=== PATIENT | female | born 1945 | race Caucasian/White ===

== ENCOUNTER 2018-04-20 10:54 | Day surgery (SDC) | payer MEDICARE, BC ==
[2018-04-20] MEDS: Lactated Ringers 1,000 ML IV SCH (11:31)
[2018-04-20] MEDS ORDERED: Propofol 200 MG/20 ML SDV ONE ×2 (12:16→13:04)
[2018-04-20] MEDS ORDERED: fentaNYL 100 MCG/2 ML SDV ONE (12:16)
[2018-04-20] MEDS ORDERED: Ondansetron 4 MG/2 ML SDV ONE (12:25)
--- NOTE | 2018-04-20 14:49 | OR ---
PREOPERATIVE DIAGNOSIS: Change in bowel habits. POSTOPERATIVE DIAGNOSIS: Change in bowel habits. PROCEDURE PERFORMED: Colonoscopy. INDICATION: The patient is a 72-year-old female with history of change in bowel habits, presents for colonoscopy at this time. PROCEDURE IN DETAIL: This was done in the operating room. Sedation was given per Anesthesia. She was placed in left lateral position. First, a rectal exam was done and was normal. Scope was introduced into the rectum and slowly advanced to the rectum, sigmoid, descending, transverse, and ascending colon until the cecum was reached. Upon reaching the cecum, scope was slowly withdrawn looking at all mucosal surfaces on the way out. No mucosal abnormalities, lesions, or polyps were noted. FINAL DIAGNOSIS: Normal colonoscopy. BKD: 04/20/2018 13:20:53 MODL: 04/20/2018 14:42:30 /[id number]
== END 2018-04-20 15:05 | disposition home or self-care (01) ==
LOC: VM.SDS 10:54
PROVIDERS: ATTEND Surgery
DX: R19.4 Change in bowel habit (principal); E03.9 Hypothyroidism, unspecified; K21.9 Gastro-esophageal reflux disease without esophagitis; Z79.899 Other long term (current) drug therapy
CPT/HCPCS: 00811; J2405; J2704; J3010; J7120

== ENCOUNTER 2018-05-18 10:56 | Day surgery (SDC) | payer MEDICARE, BC ==
[2018-05-18] MEDS: Lactated Ringers 1,000 ML IV SCH (11:39)
[2018-05-18] MEDS ORDERED: Propofol 200 MG/20 ML SDV ONE (12:21)
[2018-05-18] MEDS ORDERED: Ondansetron 4 MG/2 ML SDV ONE (12:21)
--- NOTE | 2018-05-18 12:59 | OR ---
PREOPERATIVE DIAGNOSIS: Abdominal pain. POSTOPERATIVE DIAGNOSIS: Abdominal pain. PROCEDURE PERFORMED: Esophagogastroduodenoscopy with antral biopsy. INDICATION: The patient is a 72-year-old with history of abdominal pain, presents for EGD for further evaluation. PROCEDURE IN DETAIL: This was done in the operating room. Sedation was given per Anesthesia. The endoscope was inserted into the pharynx across the esophagus into the stomach, across the pylorus into the first and second portion of the duodenum. First and second portion of the duodenum were normal. The scope was slowly withdrawn. The antrum did have some fairly significant antral gastritis. Two biopsies were taken for pathology and for H. pylori. Next, scope was retroflexed. No evidence of hiatal hernia. The scope was slowly withdrawn. The esophagus was normal. FINAL DIAGNOSIS: Antral gastritis. Biopsies pending. BKD: 05/18/2018 12:36:54 MODL: 05/18/2018 12:51:50 /[id number]
[2018-05-18 13:11] VITALS: BP 91/58
== END 2018-05-18 13:30 | disposition home or self-care (01) ==
LOC: VM.SDS 10:56
PROVIDERS: ATTEND Surgery
DX: K31.9 Disease of stomach and duodenum, unspecified (principal); K21.9 Gastro-esophageal reflux disease without esophagitis; E03.9 Hypothyroidism, unspecified; K29.70 Gastritis, unspecified, without bleeding; G89.29 Other chronic pain; M53.3 Sacrococcygeal disorders, not elsewhere classified; H81.09 Meniere's disease, unspecified ear; Z88.6 Allergy status to analgesic agent; Z88.5 Allergy status to narcotic agent; Z88.8 Allergy status to other drugs, medicaments and biological substances; Z79.52 Long term (current) use of systemic steroids; Z79.899 Other long term (current) drug therapy; Z79.2 Long term (current) use of antibiotics
CPT/HCPCS: 00731; 88305; J2405; J2704; J7120

== ENCOUNTER 2018-08-28 16:05 | Emergency (ER) | payer MEDICARE, BC ==
[2018-08-28] MEDS ORDERED: Sodium Chloride 0.9% 10 ML Syringe FLUSH PRN (16:30)
[2018-08-28] MEDS ORDERED: Ondansetron 4 MG/2 ML SDV IVPUSH ONE ×2 (16:31→18:47)
[2018-08-28] MEDS ORDERED: Sodium Chloride 0.9% 1,000 ML IV ONE (16:31)
[2018-08-28] MEDS ORDERED: cefTRIAXone 2 GM Vial IVPUSH ONE (16:53)
[2018-08-28 17:43] LABS: CHLORIDE,CL 100 mmol/L (98-107); SODIUM,NA 137 mmol/L (136-145)
[2018-08-28] MEDS ORDERED: SUMAtriptan 6 MG/0.5 ML SDV SUBCUT ONE (17:51)
[2018-08-28 18:02] LABS: ANION GAP 13.1 mmol/L (10-20)
[2018-08-28] MEDS ORDERED: Take Home: Nitrofurantoin Monohydrate/Macrocrystalline 100 MG, 2 Cap Pack PO ONE (18:40)
[2018-08-28] MEDS ORDERED: LORazepam 2 MG/ML SDV IVPUSH ONE (19:04)
--- NOTE | 2018-08-28 19:51 | EDM.PDOC ---
ED HPI GENERAL MEDICAL PROBLEM - General Chief Complaint: General Stated Complaint: nausea Time Seen by Provider: 08/28/18 16:31 Source of Information: Reports: Patient History Limitations: Reports: No Limitations - History of Present Illness INITIAL COMMENTS - FREE TEXT/NARRATIVE: Pt. presents to ER with complaints of nausea and vomiting. She states that she started vomiting after starting taking Bactrim for her UTI. She states that she is fatigued and has body aches. She is nauseated and currently vomiting on arrival to ED. Pt. denies any chest pain or shortness of breath. Pt. has taken macrobid in the past without difficulty. Denies any abdominal pain. She states that she has been chilled but has not been checking her temp. Onset: Today Location: Reports: Generalized Quality: Reports: Ache Associated Symptoms: Reports: Nausea/Vomiting Generalized Pain Score (Numeric/FACES): 8 - Related Data Allergies Allergy/AdvReac Type Severity Reaction Status Date / Time azithromycin [From Zithromax] Allergy Other Verified 05/18/18 11:40 clarithromycin [From Biaxin] Allergy Other Verified 05/18/18 11:40 codeine Allergy Shortness Verified 05/18/18 11:40 of Breath hydroxyzine Allergy Other Verified 05/18/18 11:40 meperidine [From Demerol] Allergy Shortness Verified 05/18/18 11:40 of Breath metoclopramide [From Reglan] Allergy Other Verified 05/18/18 11:40 Phenothiazines Allergy Other Verified 05/18/18 11:40 promethazine Allergy Other Verified 05/18/18 11:40 acetaminophen [From Tylenol] AdvReac Anxiety Verified 05/18/18 11:40 propoxyphene [From Darvon] AdvReac Stomach Verified 05/18/18 11:40 Upset Home Meds: Home Meds Betamethasone Dipropionate [Diprosone 0.05% Crm] 1 applic TOP BID 11/03/17 [ History] Calcium Carbonate/Vitamin D3 [Calcium 500 + Vit D 400] 1 each PO DAILY 11/03/17 [History] Clotrimazole/Betamethasone Dip [Lotrisone Cream] 1 applic TP BID PRN 11/03/17 [ History] Estrogens, Conjugated [Premarin] 0.3 mg PO MOWEFR 11/03/17 [History] FLUoxetine HCl [Prozac] 10 mg PO ASDIRECTED 11/03/17 [History] Fexofenadine [Liliam] 180 mg PO DAILY PRN 11/03/17 [History] Fluticasone Propionate [Flonase] 2 spray WENDY ASDIRECTED PRN 11/03/17 [History] Gabapentin [Neurontin] 300 mg PO DAILY 11/03/17 [History] Gabapentin [Neurontin] 600 mg PO BEDTIME 11/03/17 [History] Levothyroxine [Sythroid] 100 mcg PO DAILY 11/03/17 [History] Propranolol HCl [Inderal LA] 80 mg PO DAILY 11/03/17 [History] SUMAtriptan [Imitrex] 100 mg PO ASDIRECTED 11/03/17 [History] traMADol HCl [Ultram] 50 mg PO Q6H PRN 11/03/17 [History] ClonazePAM [KlonoPIN] 0.5 mg PO DAILY PRN 02/26/18 [History] Omeprazole Magnesium [Prilosec Otc] 20 mg PO DAILY 02/26/18 [History] Past Medical History HEENT History: Reports: Other (See Below) Other HEENT History: meniere's disease Cardiovascular History: Reports: Hypertension Other Cardiovascular History: raynaud's syndrome Gastrointestinal History: Reports: GERD Other Genitourinary History: microscopic hematuria. stress incontinence. voiding dysfunction Musculoskeletal History: Reports: Osteoarthritis Other Musculoskeletal History: spinal stenosis. radial styloid tenosynovitis of both hands. osteopenia. ganglion cyst. cervical spinal stenosis. trigger finger. back surgery. chronic si joint pain Neurological History: Reports: Migraines Other Neuro History: fibromyalgia Psychiatric History: Reports: Depression Other Psychiatric History: pain contract Endocrine/Metabolic History: Reports: Hypothyroidism Other Endocrine/Metabolic History: lupus Hematologic History: Reports: Anemia Dermatologic History: Reports: Other (See Below) Other Dermatologic History: pruritic disorder - Past Surgical History HEENT Surgical History: Reports: Polypectomy, Tonsillectomy GI Surgical History: Reports: Cholecystectomy, Colonoscopy, EGD Female Surgical History: Reports: Hysterectomy Other Musculoskeletal Surgeries/Procedures:: temporomandibular joint surgery. lumbar laminectomy. cyst removal right wrist Social & Family History - Caffeine Use Caffeine Use: Reports: Coffee ED ROS GENERAL - Review of Systems Review Of Systems: See Below Constitutional: Reports: No Symptoms HEENT: Reports: No Symptoms Respiratory: Reports: No Symptoms Cardiovascular: Reports: No Symptoms Endocrine: Reports: No Symptoms GI/Abdominal: Reports: Nausea, Vomiting : Reports: No Symptoms Musculoskeletal: Reports: No Symptoms Skin: Reports: No Symptoms Neurological: Reports: No Symptoms Psychiatric: Reports: No Symptoms Hematologic/Lymphatic: Reports: No Symptoms Immunologic: Reports: No Symptoms ED EXAM, GENERAL - Physical Exam Exam: See Below Exam Limited By: No Limitations General Appearance: Alert, WD/WN, Anxious Eye Exam: Bilateral Eye: EOMI, Normal Fundi, Normal Inspection, PERRL Ears: Normal External Exam, Normal Canal, Hearing Grossly Normal, Normal TMs Ear Exam: Bilateral Ear: Auricle Normal, Canal Normal, TM normal Nose: Normal Inspection, Normal Mucosa, No Blood Throat/Mouth: Normal Inspection, Normal Lips, Normal Teeth, Normal Gums, Normal Oropharynx, Normal Voice, No Airway Compromise Head: Atraumatic, Normocephalic Neck: Normal Inspection, Supple, Non-Tender, Full Range of Motion Respiratory/Chest: No Respiratory Distress, Lungs Clear, Normal Breath Sounds, No Accessory Muscle Use, Chest Non-Tender Cardiovascular: Normal Peripheral Pulses, Regular Rate, Rhythm, No Edema, No Gallop, No JVD, No Murmur, No Rub Peripheral Pulses: 4+: Radial (L), Radial (R) GI/Abdominal: Normal Bowel Sounds, Soft, No Organomegaly, No Distention, No Abnormal Bruit, No Mass, Tender (diffusely tender throughout) (Female) Exam: Deferred Rectal (Female) Exam: Deferred Back Exam: Normal Inspection, Full Range of Motion, NT Extremities: Normal Inspection, Normal Range of Motion, Non-Tender, Normal Capillary Refill, No Pedal Edema Neurological: Alert, Oriented, CN II-XII Intact, Normal Cognition, Normal Gait, Normal Reflexes, No Motor/Sensory Deficits Psychiatric: Normal Affect, Normal Mood Skin Exam: Warm, Dry, Intact, Normal Color, No Rash Lymphatic: No Adenopathy Course - Vital Signs Last Recorded V/S: Last Vital Signs Temp 38.4 C H 08/28/18 16:31 Pulse 79 08/28/18 16:31 Resp 18 08/28/18 16:31 BP 127/68 08/28/18 16:31 Pulse Ox 96 08/28/18 16:31 - Orders/Labs/Meds Orders: Active Orders 24 hr Category Date Time Status CULTURE BLOOD [BC] Stat Lab 08/28/18 17:08 Received CULTURE BLOOD [BC] Stat Lab 08/28/18 17:14 Results Sodium Chloride 0.9% [Saline Flush] Med 08/28/18 16:30 Active 10 ml FLUSH ASDIRECTED PRN Blood Culture x2 Reflex Set [OM.PC] Stat Oth 08/28/18 16:30 Ordered Peripheral IV Insertion Adult [OM.PC] Routine Oth 08/28/18 16:30 Ordered Medication Orders Sodium Chloride (Saline Flush) 10 ml FLUSH ASDIRECTED PRN PRN Reason: Keep Vein Open Labs: Laboratory Tests 08/28/18 08/28/18 08/28/18 Range/Units 17:08 17:08 17:08 WBC 11.9 H (4.0-10.0) x10^3/uL RBC 4.54 (4.00-5.50) x10^6/uL Hgb 13.5 (12.0-16.0) g/dL Hct 40.7 (33.0-47.0) % MCV 89.6 (78.0-93.0) fL MCH 29.7 (26.0-32.0) pg MCHC 33.2 (32.0-36.0) g/dL RDW Coeff of Rick 12.7 (10.0-15.0) % Plt Count 240 (130-400) x10^3/uL Neut % (Auto) 79.7 (50.0-80.0) % Lymph % (Auto) 9.3 L (25.0-50.0) % Banner % (Auto) 9.8 (2.0-11.0) % Eos % (Auto) 0.8 (0.0-4.0) % Baso % (Auto) 0.4 (0.2-1.2) % PT 10.4 (10.0-12.8) SEC INR 0.9 L (2.0-3.5) Sodium 137 (136-145) mmol/L Potassium 4.1 (3.5-5.1) mmol/L Chloride 100 (98-107) mmol/L Carbon Dioxide 28 (21-32) mmol/L Anion Gap 13.1 (10-20) mmol/L BUN 14 (7-18) mg/dL Creatinine 0.8 (0.55-1.02) mg/dL Est Cr Clr Drug Dosing TNP Estimated GFR (MDRD) > 60 Glucose 118 H (74-106) mg/dL Lactic Acid (0.4-2.0) mmol/L Calcium 9.0 (8.5-10.1) mg/dL Corrected Calcium 9.32 (8.5-10.1) mg/dL Phosphorus 2.9 (2.6-4.7) mg/dL Magnesium 2.1 (1.8-2.4) mg/dL Total Bilirubin 1.0 (0.2-1.0) mg/dL AST 19 (15-37) U/L ALT 26 (14-59) U/L Alkaline Phosphatase 71 (46-116) U/L C-Reactive Protein 6.7 H (<=0.9) mg/dL Total Protein 7.5 (6.4-8.2) g/dL Albumin 3.6 (3.4-5.0) g/dL Globulin 3.9 Albumin/Globulin Ratio 0.92 Urine Color (YELLOW) Urine Appearance (CLEAR) Urine pH (5.0-8.0) Ur Specific Harrod Urine Protein (NEGATIVE) mg/dL Urine Glucose (UA) (NEGATIVE) mg/dL Urine Ketones (NEGATIVE) mg/dL Urine Occult Blood (NEGATIVE) Urine Nitrite (NEGATIVE) Urine Bilirubin (NEGATIVE) Urine Urobilinogen (0.2) EU/dL Ur Leukocyte Esterase (NEGATIVE) Urine RBC (NOT SEEN) /HPF Urine WBC (NOT SEEN) /HPF Ur Squamous Epith Cells (NEGATIVE) /HPF Urine Bacteria (NEGATIVE) /HPF Urine Mucus (NEGATIVE) /LPF 08/28/18 08/28/18 Range/Units 17:08 18:22 WBC (4.0-10.0) x10^3/uL RBC (4.00-5.50) x10^6/uL Hgb (12.0-16.0) g/dL Hct (33.0-47.0) % MCV (78.0-93.0) fL MCH (26.0-32.0) pg MCHC (32.0-36.0) g/dL RDW Coeff of Rick (10.0-15.0) % Plt Count (130-400) x10^3/uL Neut % (Auto) (50.0-80.0) % Lymph % (Auto) (25.0-50.0) % Banner % (Auto) (2.0-11.0) % Eos % (Auto) (0.0-4.0) % Baso % (Auto) (0.2-1.2) % PT (10.0-12.8) SEC INR (2.0-3.5) Sodium (136-145) mmol/L Potassium (3.5-5.1) mmol/L Chloride (98-107) mmol/L Carbon Dioxide (21-32) mmol/L Anion Gap (10-20) mmol/L BUN (7-18) mg/dL Creatinine (0.55-1.02) mg/dL Est Cr Clr Drug Dosing Estimated GFR (MDRD) Glucose (74-106) mg/dL Lactic Acid 1.1 (0.4-2.0) mmol/L Calcium (8.5-10.1) mg/dL Corrected Calcium (8.5-10.1) mg/dL Phosphorus (2.6-4.7) mg/dL Magnesium (1.8-2.4) mg/dL Total Bilirubin (0.2-1.0) mg/dL AST (15-37) U/L ALT (14-59) U/L Alkaline Phosphatase (46-116) U/L C-Reactive Protein (<=0.9) mg/dL Total Protein (6.4-8.2) g/dL Albumin (3.4-5.0) g/dL Globulin Albumin/Globulin Ratio Urine Color Dark yellow H (YELLOW) Urine Appearance Slightly cloudy H (CLEAR) Urine pH 6.0 (5.0-8.0) Ur Specific Harrod <=1.005 Urine Protein Trace H (NEGATIVE) mg/dL Urine Glucose (UA) Negative (NEGATIVE) mg/dL Urine Ketones 15 H (NEGATIVE) mg/dL Urine Occult Blood Trace-lysed H (NEGATIVE) Urine Nitrite Positive H (NEGATIVE) Urine Bilirubin Negative (NEGATIVE) Urine Urobilinogen 0.2 (0.2) EU/dL Ur Leukocyte Esterase Small H (NEGATIVE) Urine RBC Not seen (NOT SEEN) /HPF Urine WBC 5-10 H (NOT SEEN) /HPF Ur Squamous Epith Cells Rare (NEGATIVE) /HPF Urine Bacteria Not seen (NEGATIVE) /HPF Urine Mucus Not seen (NEGATIVE) /LPF Meds: Medications Generic Name Dose Route Start Last Admin Trade Name [place] PRN Reason Stop Dose Admin Sodium Chloride 10 ml 08/28/18 16:30 Saline Flush FLUSH ASDIRECTED PRN Keep Vein Open Discontinued Medications Generic Name Dose Route Start Last Admin Trade Name [place] PRN Reason Stop Dose Admin Ceftriaxone Sodium 2 gm 08/28/18 16:53 08/28/18 17:02 Rocephin IVPUSH 08/28/18 16:54 2 gm STAT ONE Administration Sodium Chloride 1,000 mls @ 1,000 mls/hr 08/28/18 16:31 08/28/18 17:01 Normal Saline IV 08/28/18 17:30 1,000 mls/hr .BOLUS ONE Administration Lorazepam 1 mg 08/28/18 19:04 08/28/18 19:09 Ativan IVPUSH 08/28/18 19:05 1 mg STAT ONE Administration Nitrofurantoin Macrocrystals 1 packet 08/28/18 18:40 08/28/18 18:50 Take Home: Nitrofur Banner/Ma 100 Mg, 2 Pack PO 08/28/18 18:41 1 packet ONETIME ONE Administration Ondansetron HCl 4 mg 08/28/18 16:31 08/28/18 17:01 Zofran IVPUSH 08/28/18 16:32 4 mg ONETIME ONE Administration Ondansetron HCl 4 mg 08/28/18 18:47 08/28/18 18:51 Zofran IVPUSH 08/28/18 18:48 4 mg ONETIME ONE Administration Sumatriptan Succinate 6 mg 08/28/18 17:51 08/28/18 18:13 Imitrex SUBCUT 08/28/18 17:52 6 mg ONETIME ONE Administration - Radiology Interpretation Free Text/Narrative:: chest x-ray negative for acute pathology - Re-Assessments/Exams Free Text/Narrative Re-Assessment/Exam: Pt. was given IV NS and zofran. She reported improvement in her nausea. She was given 2 gm rocephin IV. She was quite anxious and was given ativan 1 mg IV. She reported feeling much improved and wished to be discharged. Departure - Departure Time of Disposition: 20:00 Disposition: Home, Self-Care 01 Condition: Good Clinical Impression: Medication adverse effect, UTI (urinary tract infection) - Discharge Information Instructions: Urinary Tract Infection, Adult Referrals: PCP,None [Primary Care Provider] - Forms: ED Department Discharge Additional Instructions: Stop bactrim Start Macrobid 100mg twice daily for 10 days Drink plenty of fluids Follow-up in clinic in 10-14 days - My Orders Last 24 Hours: My Active Orders 08/28/18 16:30 Sodium Chloride 0.9% [Saline Flush] 10 ml FLUSH ASDIRECTED PRN Blood Culture x2 Reflex Set [OM.PC] Stat Peripheral IV Insertion Adult [OM.PC] Routine 08/28/18 17:08 CULTURE BLOOD [BC] Stat 08/28/18 17:14 CULTURE BLOOD [BC] Stat - Assessment/Plan Last 24 Hours: My Active Orders 08/28/18 16:30 Sodium Chloride 0.9% [Saline Flush] 10 ml FLUSH ASDIRECTED PRN Blood Culture x2 Reflex Set [OM.PC] Stat Peripheral IV Insertion Adult [OM.PC] Routine 08/28/18 17:08 CULTURE BLOOD [BC] Stat 08/28/18 17:14 CULTURE BLOOD [BC] Stat Plan: Stop bactrim Start Macrobid 100mg twice daily for 10 days Drink plenty of fluids Follow-up in clinic in 10-14 days
== END 2018-08-28 19:57 | disposition home or self-care (01) ==
LOC: VM.ED 16:05
DX: R11.2 Nausea with vomiting, unspecified (principal); T36.8X5A Adverse effect of other systemic antibiotics, initial encounter; N39.0 Urinary tract infection, site not specified; I10 Essential (primary) hypertension; Z98.890 Other specified postprocedural states; Z90.49 Acquired absence of other specified parts of digestive tract; Z90.710 Acquired absence of both cervix and uterus; Z79.899 Other long term (current) drug therapy; E03.9 Hypothyroidism, unspecified; Z88.8 Allergy status to other drugs, medicaments and biological substances; Z88.1 Allergy status to other antibiotic agents; Z88.5 Allergy status to narcotic agent
CPT/HCPCS: 36415; 80053; 81001; 83605; 83735; 84100; 85025; 85610; 86140; 87040; 96361; 96372; 96374; 96375; 96376; 99283; A9270; J0696; J2060; J2405; J3030; J7030

== ENCOUNTER 2018-09-22 22:24 | Inpatient (IN) | payer MEDICARE, BC ==
--- NOTE | 2018-09-22 22:50 | EDM.PDOC ---
ED HPI GENERAL MEDICAL PROBLEM - General Chief Complaint: Lower Extremity Injury/Pain Stated Complaint: right hip/pelvis pain Time Seen by Provider: 09/22/18 22:39 Source of Information: Reports: Patient History Limitations: Reports: No Limitations - History of Present Illness INITIAL COMMENTS - FREE TEXT/NARRATIVE: Patient arrives here with complaints of progressively worsening right sided pelvis/hip pain. She has muscle spasms. She reports she fell 6 weeks ago and had some mild pain at the time but was able to walk with some soreness and stiffness. She states Friday she started having significant amounts of pain to the right hip and leg that has steadily progressed. She is brought in this evening by her daughter and had great difficulty transferring to the stretcher due to the pain. She has history of lumbar discectomy. Hardware has been intact without incident. She denies change in LOC, no sob, no chest pain, no nausea or vomiting. She does state she has numbness/tingling to the bottoms of her feet but this is not new for her. She has pain in her right groin when moving her left leg. No nausea or vomiting. Denies blood in urine or stool. She has tried ibuprofen and has been taking her prescribed tramadol which has not helped. Onset: Gradual Duration: Getting Worse Location: Reports: Lower Extremity, Right Quality: Reports: Sharp Improves with: Reports: Medication Worsens with: Reports: Movement Associated Symptoms: Reports: No Other Symptoms - Related Data Allergies Allergy/AdvReac Type Severity Reaction Status Date / Time azithromycin [From Zithromax] Allergy Other Verified 08/28/18 20:37 clarithromycin [From Biaxin] Allergy Other Verified 08/28/18 20:37 codeine Allergy Shortness Verified 08/28/18 20:37 of Breath hydroxyzine Allergy Other Verified 08/28/18 20:37 meperidine [From Demerol] Allergy Shortness Verified 08/28/18 20:37 of Breath metoclopramide [From Reglan] Allergy Other Verified 08/28/18 20:37 Phenothiazines Allergy Other Verified 08/28/18 20:37 promethazine Allergy Other Verified 08/28/18 20:37 acetaminophen [From Tylenol] AdvReac Anxiety Verified 08/28/18 20:37 propoxyphene [From Darvon] AdvReac Stomach Verified 08/28/18 20:37 Upset Home Meds: Home Meds Betamethasone Dipropionate [Diprosone 0.05% Crm] 1 applic TOP BID 11/03/17 [ History] Calcium Carbonate/Vitamin D3 [Calcium 500 + Vit D 400] 1 each PO DAILY 11/03/17 [History] Clotrimazole/Betamethasone Dip [Lotrisone Cream] 1 applic TP BID PRN 11/03/17 [ History] Estrogens, Conjugated [Premarin] 0.3 mg PO MOWEFR 11/03/17 [History] FLUoxetine HCl [Prozac] 10 mg PO ASDIRECTED 11/03/17 [History] Fexofenadine [Liliam] 180 mg PO DAILY PRN 11/03/17 [History] Fluticasone Propionate [Flonase] 2 spray WENDY ASDIRECTED PRN 11/03/17 [History] Gabapentin [Neurontin] 300 mg PO DAILY 11/03/17 [History] Gabapentin [Neurontin] 600 mg PO BEDTIME 11/03/17 [History] Levothyroxine [Sythroid] 100 mcg PO DAILY 11/03/17 [History] Propranolol HCl [Inderal LA] 80 mg PO DAILY 11/03/17 [History] SUMAtriptan [Imitrex] 100 mg PO ASDIRECTED 11/03/17 [History] traMADol HCl [Ultram] 50 mg PO Q6H PRN 11/03/17 [History] ClonazePAM [KlonoPIN] 0.5 mg PO DAILY PRN 02/26/18 [History] Omeprazole Magnesium [Prilosec Otc] 20 mg PO DAILY 02/26/18 [History] Past Medical History HEENT History: Reports: Other (See Below) Other HEENT History: meniere's disease Cardiovascular History: Reports: Hypertension Other Cardiovascular History: raynaud's syndrome Gastrointestinal History: Reports: GERD Other Genitourinary History: microscopic hematuria. stress incontinence. voiding dysfunction Musculoskeletal History: Reports: Osteoarthritis Other Musculoskeletal History: spinal stenosis. radial styloid tenosynovitis of both hands. osteopenia. ganglion cyst. cervical spinal stenosis. trigger finger. back surgery. chronic si joint pain Neurological History: Reports: Migraines Other Neuro History: fibromyalgia Psychiatric History: Reports: Depression Other Psychiatric History: pain contract Endocrine/Metabolic History: Reports: Hypothyroidism Other Endocrine/Metabolic History: lupus Hematologic History: Reports: Anemia Dermatologic History: Reports: Other (See Below) Other Dermatologic History: pruritic disorder - Past Surgical History HEENT Surgical History: Reports: Polypectomy, Tonsillectomy GI Surgical History: Reports: Cholecystectomy, Colonoscopy, EGD Female Surgical History: Reports: Hysterectomy Other Musculoskeletal Surgeries/Procedures:: temporomandibular joint surgery. lumbar laminectomy. cyst removal right wrist Social & Family History - Caffeine Use Caffeine Use: Reports: Coffee Review of Systems - Review of Systems Review Of Systems: See Below Constitutional: Reports: No Symptoms Eyes: Reports: No Symptoms Ears: Reports: No Symptoms Nose: Reports: No Symptoms Mouth/Throat: Reports: No Symptoms Respiratory: Reports: No Symptoms Cardiovascular: Reports: No Symptoms GI/Abdominal: Reports: No Symptoms Genitourinary: Reports: No Symptoms Musculoskeletal: Reports: Leg Pain, Muscle Pain (spasms) Skin: Reports: No Symptoms Neurological: Reports: Numbness (bilateral bottom of feet; not new), Tingling Psychiatric: Reports: No Symptoms ED EXAM, GENERAL - Physical Exam Exam: See Below Exam Limited By: No Limitations General Appearance: Alert, WD/WN, Mild Distress Eye Exam: Bilateral Eye: EOMI, Normal Inspection Ears: Normal TMs Throat/Mouth: Normal Inspection, Normal Lips, Normal Teeth, Normal Gums, Normal Oropharynx, Normal Voice, No Airway Compromise Head: Atraumatic, Normocephalic Neck: Normal Inspection, Supple, Non-Tender, Full Range of Motion Respiratory/Chest: No Respiratory Distress, Lungs Clear, Normal Breath Sounds, No Accessory Muscle Use, Chest Non-Tender Cardiovascular: Normal Peripheral Pulses, Regular Rate, Rhythm, No Edema, No Gallop, No JVD, No Murmur, No Rub Peripheral Pulses: 2+: Posterior Tibial (L), Posterior Tibial (R), Dorsalis Pedis (L), Dorsalis Pedis (R) GI/Abdominal: Normal Bowel Sounds, Soft, Non-Tender, No Organomegaly, No Distention, No Abnormal Bruit, No Mass Back Exam: Other (external/internal rotation of left leg caused severe pain to right hip. minimal raising of right leg caused severe pain) Extremities: Normal Inspection, No Pedal Edema, Normal Capillary Refill, Leg Pain, Limited Range of Motion. No: Normal Range of Motion Neurological: Alert, Oriented, CN II-XII Intact, Normal Cognition, Normal Gait, Sensory/Motor Deficit (soles of bilateral feet have numbness) Skin Exam: Warm, Dry, Intact, Normal Color, No Rash Lymphatic: No Adenopathy Course - Radiology Interpretation Free Text/Narrative:: CT of lumbar spine and pelvis negative for acute pathology. Departure - Departure Time of Disposition: 02:00 Disposition: Admitted As Inpatient 65 Condition: Fair Clinical Impression: Right leg pain, Muscle spasm of right leg, Back muscle spasm - Discharge Information *PRESCRIPTION DRUG MONITORING PROGRAM REVIEWED*: No *COPY OF PRESCRIPTION DRUG MONITORING REPORT IN PATIENT BRYANT: No Referrals: Moon Kruse DO [Primary Care Provider] - Forms: ED Department Discharge ED Communication - ED Communication Date/Time Date: 09/23/18 Time Called: 01:44 - Discussed Case With (1) Discussed Case With (1): Admitting Provider (Nick Singh contacted regarding admission. Report given. [facility] to follow.) - Problem List & Annotations (1) Back muscle spasm SNOMED Code(s): 544680871 Code(s): M62.830 - MUSCLE SPASM OF BACK Status: Acute Priority: Low Current Visit: Yes (2) Muscle spasm of right leg SNOMED Code(s): 05794369, 624946093 Code(s): M62.838 - OTHER MUSCLE SPASM Status: Acute Priority: Low Current Visit: Yes (3) Right leg pain SNOMED Code(s): 004406620 Code(s): M79.604 - PAIN IN RIGHT LEG Status: Acute Priority: Low Current Visit: Yes - Problem List Review Problem List Initiated/Reviewed/Updated: Yes - Assessment/Plan Assessment:: Right leg spasms Back spasms intractable pain Plan: Plan Admit to inpatient with Nick Singh covering. Pain control, PT/OT to follow
[2018-09-22] MEDS ORDERED: Morphine 2 MG/ML Syringe IVPUSH ONE (22:51)
[2018-09-22] MEDS ORDERED: Ondansetron 4 MG/2 ML SDV IVPUSH ONE (23:11)
[2018-09-23] MEDS ORDERED: diazePAM 5 MG/ML MDV IVPUSH ONE (00:57)
[2018-09-23] MEDS ORDERED: Morphine 2 MG/ML Syringe IVPUSH ONE (00:57)
[2018-09-23] MEDS ORDERED: Ondansetron 4 MG/2 ML SDV IV PRN (03:15)
[2018-09-23] MEDS ORDERED: Docusate Sodium 100 MG Cap PO PRN (03:15)
[2018-09-23] MEDS ORDERED: Diazepam 5 MG Tab PO PRN (03:19)
[2018-09-23] MEDS ORDERED: Fluticasone Propionate Nasal Spray 16 GM Bottle NAS PRN (03:20)
[2018-09-23] MEDS ORDERED: Betamethasone Dipropionate/Clotrimazole 0.05-1% Crm 15 GM Tube TOP PRN (03:20)
[2018-09-23] MEDS ORDERED: Loratadine 10 MG Tab PO PRN (03:20)
[2018-09-23] MEDS ORDERED: SUMAtriptan 50 MG Tab PO SCH (03:30)
[2018-09-23] MEDS: ClonazePAM 0.5 MG Tab PO PRN (04:15)
[2018-09-23] MEDS: Morphine 2 MG/ML Syringe IVPUSH PRN ×2 (04:16→07:58)
[2018-09-23] MEDS: Sodium Chloride 0.9% 10 ML Syringe FLUSH PRN (04:20)
[2018-09-23 07:15] LABS: ANION GAP 14.1 mmol/L (10-20); CHLORIDE,CL 102 mmol/L (98-107); SODIUM,NA 139 mmol/L (136-145)
[2018-09-23] MEDS: Omeprazole 20 MG Cap.CR PO SCH (07:51)
[2018-09-23] MEDS: Levothyroxine 100 MCG Tab PO SCH (07:52)
[2018-09-23] MEDS: Gabapentin 100 MG Cap PO SCH (07:58)
[2018-09-23] MEDS ORDERED: Non-Formulary Medication 1 Each (Betamethasone Dipropionate [Diprosone 0.05% Crm] 1 APPLIC TOP SCH (08:00)
--- NOTE | 2018-09-23 09:13 | CT ---
[id number] CT/CT Pelvis WO IV Exam: CT Pelvis WO IV Clinical Data: TRAUMA COMPARISON: NO PREVIOUS SIMILAR EXAM IS AVAILABLE FINDINGS: Surgical changes of the lumbar spine are seen. No fracture or subluxation is seen. IMPRESSION: NO ACUTE BONY ABNORMALITY. Scar Mendoza MD 09/23/18 [id number] Thank you for allowing us to participate in the care of your patient.
--- NOTE | 2018-09-23 09:22 | CT ---
[id number] CT/CT Lumbar Spine WO IV Exam: CT Lumbar Spine WO IV Clinical Data: TRAUMA COMPARISON: NO PREVIOUS SIMILAR EXAM IS AVAILABLE FINDINGS: Surgical changes and degenerative changes are seen. There is no acute fracture or subluxation. There is slight anterior positioning of L4 on L5. IMPRESSION: EXTENSIVE DEGENERATIVE CHANGES. NO FRACTURE OR SUBLUXATION. Scar Mendoza MD 09/23/18 0921 Thank you for allowing us to participate in the care of your patient.
[2018-09-23] MEDS ORDERED: FLUoxetine 20 MG Cap PO SCH (11:45)
--- NOTE | 2018-09-23 13:46 | HP ---
CHIEF COMPLAINT: Right groin pain. HISTORY OF PRESENT ILLNESS: A 73-year-old patient was seen and examined in the emergency room last evening for uncontrolled pain of the right groin. According to the patient, her pain started about 6 weeks ago after she sustained a fall on the cement. The patient states at the time of the fall she did not hit her head or have any LOC. The patient states that she tripped and fell backward landing on her buttocks. The patient does not recall any twisting type of injury. She states that the fall happened so fast she does not exactly remember the mechanism of injury. The patient states over the past 6 weeks her pain seemed to be getting better until last weekend. The patient states that she was quite busy with activities, and the right groin pain has progressively gotten worse. The patient states during the day yesterday she was trying to keep active to help the pain, however, it progressed to where she needed to be seen in the emergency department. The patient had CT scan studies completed in the emergency room. The lumbar spine CT result only showed extensive degenerative changes without any fracture or subluxation. The CT scan of the pelvis did not show any acute bony abnormalities. The patient was given morphine and Valium in the emergency room, which seems to help her pain some. The pain is making ambulation very difficult. The patient states she has some numbness to the anterior right upper thigh. The patient denies any tingling or paraesthesia of the right lower extremity. The patient's blood work in the emergency room was fairly unremarkable. The patient is on a pain contract with her primary provider, Dr. Moon Kruse. The patient was last seen in the clinic for chronic pain management on 09/07/2018. The patient is on a pain contract for central canal stenosis. The patient has had appropriate pill counts with her pain contract visits. The patient has also been recently treated for UTI symptoms. The patient states since she had her colonoscopy in 05/2018, she has had 4 separate UTIs. The patient was recently seen by Urology on 09/17/2018, and was treated for a UTI. The patient's urinalysis today does not show any bladder infection or acute cystitis. The patient denies any recent falls. The patient states that her symptoms may be related to increase in activity. Otherwise, no other concerns today. PAST MEDICAL HISTORY: 1. Gastroesophageal reflux disease. 2. General anxiety disorder. 3. Hypothyroidism. 4. Iron deficiency. 5. Cervical spine stenosis. 6. Primary osteoarthritis. 7. Major depressive disorder. 8. Status post L4-L5 osteotomy and diskectomy. 9. Lupus. 10.COAT agreement signed on 09/07/2018. PAST SURGICAL HISTORY: 1. Vaginal hysterectomy. 2. TMJ surgery. 3. Cholecystectomy. 4. Tonsillectomy and adenoidectomy. 5. Lipoma resection. FAMILY HISTORY: Noncontributory. SOCIAL HISTORY: The patient denies any cigarette smoking. The patient does not use any alcohol. The patient does use daily opioids per her pain contract agreement. ALLERGIES: 1. Sulfa. 2. Azithromycin. 3. Clarithromycin. 4. Codeine. 5. Hydroxyzine. 6. Meperidine. 7. Reglan. 8. Phenothiazine. 9. Promethazine. 10.Acetaminophen. 11.Propoxyphene. MEDICATIONS: 1. Betamethasone/clotrimazole 1 application topically daily as needed. 2. Clonazepam 0.5 mg p.o. daily as needed for anxiety. 3. Colace 100 mg 1 tablet p.o. twice daily as needed. 4. Premarin 0.3 mg 1 application vaginally on Friday, Friday, and Friday. 5. Prozac 10 mg p.o. daily alternating with 20 mg p.o. daily. 6. Flonase 2 squirts each nostril daily as needed. 7. Gabapentin 200 mg p.o. daily. 8. Gabapentin 600 mg 1 tablet p.o. daily at bedtime. 9. Levothyroxine 100 mcg 1 tablet p.o. daily. 10.Claritin 10 mg 1 tablet p.o. daily as needed. 11.Inderal 80 mg 1 tablet p.o. daily. 12.Omeprazole 20 mg 1 tablet p.o. daily before breakfast. 13.Imitrex 100 mg p.o. daily as directed. REVIEW OF SYSTEMS: Constitutional: Negative. Respiratory: Denies any cough or shortness of breath. Cardiovascular: Denies any chest pain or palpitations. Abdomen: Negative. Musculoskeletal: Complains of right groin midline pain, denies any back pain. Skin: Negative. Neurologic: The patient denies any focal neurological deficits. PHYSICAL EXAMINATION: General: The patient is in no acute distress. The patient is cooperative and conversive, the patient is alert. Respiratory: Lungs are clear to auscultation. Cardiovascular: Regular rate and rhythm. S1, S2 present. Abdomen: Abdomen is soft and nontender. Bowel sounds are active x4. Musculoskeletal: The patient has exquisite pain over the midline portion of the right groin to light palpation. No evidence of trauma. No obvious bone deformity. No swelling or erythema. Skin: Skin is intact. Skin is pink, warm, and dry. Neurologic: The patient is alert. The patient is oriented to person, place, and time. Sensation is intact. LABORATORY DATA: CBC: White blood cell count 8.7, hemoglobin 12.6, hematocrit 38.6, platelets are 221,000. PT/INR is 0.9. D-dimer 0.59. CMP: Sodium 139, potassium 4.1, chloride 102, CO2 of 27, anion gap is 14.1, BUN is 13, creatinine 0.8, GFR greater than 60, glucose 129, calcium 8.8, bilirubin 1.0, AST 68, ALT 56, alkaline phosphatase 79, C-reactive protein 4.4, total protein 6.8, albumin 3.2. Urinalysis: PH is 6.0, specific gravity 1.015. Negative for protein, glucose, ketones, blood, nitrite. Negative for leukocyte esterase. IMAGING STUDIES: 1. A CT of lumbar spine shows extensive degenerative changes; no fracture or subluxation. 2. Pelvis CT does not show any acute bony abnormalities. ASSESSMENT: 1. Uncontrolled pain. 2. Right groin pain. 3. Fall. 4. Hypothyroidism. 5. Iron deficiency. 6. Lupus. 7. Primary osteoarthritis. PLAN: The patient will be on scheduled morphine for better pain control. We will continue the patient on her current home medications. The patient does have a slightly elevated D-dimer, therefore, I will check an ultrasound to rule out any blood clots of the right lower extremity. The patient will be on a regular diet. The patient is a code 1. The patient does wish to be transferred to a higher level of care should the need arise. We will consult physical and occupational therapy as well as case management for discharge planning. At this point, it appears the patient may have a muscle contusion versus a muscle tear. We will see how the patient does with physical therapy and proceed further with their recommendations. The patient will remain on acute cares for now until her pain is under better control. Note: This patient was seen and examined by me as an [facility] Provider. TB: 09/23/2018 11:22:26 MODL: 09/23/2018 13:40:44 /[id number]
[2018-09-23] MEDS: ESTROGENS CONJUGATED 0.3 MG PO SCH (14:07)
[2018-09-23] MEDS: PROPRANOLOL HCL 80 MG PO SCH (14:07)
[2018-09-23] MEDS: FLUoxetine 20 MG Cap PO SCH (14:49)
[2018-09-23] MEDS: Gabapentin 300 MG Cap PO SCH (20:07)
[2018-09-24] MEDS: Omeprazole 20 MG Cap.CR PO SCH (06:34)
[2018-09-24] MEDS: Levothyroxine 100 MCG Tab PO SCH ×2 (06:37→07:42)
[2018-09-24] MEDS: Gabapentin 100 MG Cap PO SCH (07:40)
[2018-09-24] MEDS: PROPRANOLOL HCL 80 MG PO SCH ×3 (07:41→20:28)
[2018-09-24] MEDS: FLUoxetine 10 MG Cap PO SCH (07:41)
[2018-09-24] MEDS: Morphine 2 MG/ML Syringe IVPUSH PRN ×2 (09:26→13:26)
--- NOTE | 2018-09-24 11:33 | PN ---
Progress Note for IVANIA HUBER Date: 09/24/2018 Room #: VM.212 CHIEF COMPLAINT: Right groin pain. SUBJECTIVE: The patient states that her pain is getting better today. She worked with therapy yesterday and states that she was able to move much better. She has been using the commode with assist of one. The patient has not had any other focal neurological deficits. The patient has not had any chest pain or shortness of breath. The patient denies any abdominal pain, nausea, or vomiting. The patient is not having any UTI symptoms. The patient states that her right groin pain has improved. She does not have as much spasm in that area. OBJECTIVE: General: The patient is alert, the patient is cooperative. The patient does not appear to be in any acute distress. Respiratory: Clear to auscultation. Cardiac: Regular rate and rhythm. No murmur. Abdomen: Soft, nontender. Bowel sounds are active x4. Musculoskeletal: The patient has pinpoint tenderness over the mid right groin. No obvious bone deformity. The patient is able to move the right lower extremity but carefully due to pain. CMS is intact. Skin: Warm, dry, intact. Neurological: The patient is alert, oriented x3. Sensation is intact. CMS intact of the right lower extremity. ASSESSMENT: 1. Uncontrolled pain. 2. Right groin pain. 3. Fall. 4. Hypothyroidism. 5. Iron deficiency. 6. Lupus. 7. Primary osteoarthritis. PLAN: The patient will continue on scheduled morphine for better pain control. The patient is set up to have an ultrasound today to assess arterial and venous flow and to rule out any blood clots due to elevated D-dimer. The patient will continue with physical therapy. I do anticipate a discharge hopefully home tomorrow. The patient is code 1. The patient does wish to be transferred to higher level of care should the need arise. The patient will continue on acute cares for now due to her uncontrolled pain and scheduled pain medication. Note: This patient was seen and examined by me as an [facility] provider. TB: 09/24/2018 07:53:57 MODL: 09/24/2018 11:23:44 /[id number] PAGE
[2018-09-24] MEDS: ClonazePAM 0.5 MG Tab PO PRN (12:15)
--- NOTE | 2018-09-24 12:22 | US ---
[id number] US/US Venous Doppler LE Right EXAM: RIGHT LOWER EXTREMITY DUPLEX ULTRASOUND INDICATION: Right groin pain and right lower extremity numbness. COMPARISON: None. DISCUSSION: The deep venous structures are compressible. No valvular incompetence or pulsatility seen. Spontaneity, phasicity and response to augmentation were noted by the technologist. Incidental popliteal cyst measuring about 18 mm in diameter. There are a few benign-appearing lymph nodes in the right groin. IMPRESSION: 1. No evidence of deep vein thrombosis in the right lower extremity. Augusto Richardson MD 09/24/18 [id number] Thank you for allowing us to participate in the care of your patient.
--- NOTE | 2018-09-24 12:23 | US ---
[id number] US/US Arterial Duplex LE Right EXAM: RIGHT LOWER EXTERNAL ARTERIAL INDICATION: Right groin pain and right lower extremity numbness. COMPARISON: None. DISCUSSION: Normal multiphasic waveforms are seen throughout the right lower external arterial system. No focal stenosis, aneurysm or other abnormality was identified. Right lower extremity arterial velocities in centimeters per sec: Common femoral 125 Deep femoral 113 Femoral 118, 95 and 83 Popliteal 95 Dorsalis pedis 75 Posterior tibial 65 IMPRESSION: 1. Negative exam. Augusto Richardson MD 09/24/18 [id number] Thank you for allowing us to participate in the care of your patient.
--- NOTE | 2018-09-24 14:46 | CR ---
[id number] RAD/RAD Pelvis 1V W 2V Right Hip EXAM: AP PELVIS, AP AND LATERAL VIEWS RIGHT HIP INDICATION: Right hip pain. COMPARISON: None. 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 No fracture or dislocation is identified. Lower lumbar spondylosis and lumbar spine fusion changes are partially characterized. IMPRESSION: 1. Mild to moderate osteoarthritis of the hips. Augusto Richardson MD 09/24/18 [id number] Thank you for allowing us to participate in the care of your patient.
[2018-09-24] MEDS: Gabapentin 300 MG Cap PO SCH (20:03)
[2018-09-25] MEDS: Morphine 2 MG/ML Syringe IVPUSH PRN ×3 (04:57→22:32)
[2018-09-25] MEDS: Sodium Chloride 0.9% 10 ML Syringe FLUSH PRN ×2 (04:58→22:32)
[2018-09-25] MEDS: Omeprazole 20 MG Cap.CR PO SCH ×2 (05:08→06:20)
[2018-09-25] MEDS ORDERED: Levothyroxine 100 MCG Tab PO SCH (07:00)
[2018-09-25] MEDS: Gabapentin 100 MG Cap PO SCH (08:10)
[2018-09-25] MEDS: FLUoxetine 20 MG Cap PO SCH (08:10)
[2018-09-25] MEDS: ESTROGENS CONJUGATED 0.3 MG PO SCH (08:11)
--- NOTE | 2018-09-25 11:54 | PN ---
Progress Note for IVANIA HUBER Date: 09/25/2018 Room #: VM.212 CHIEF COMPLAINT: Right groin pain. SUBJECTIVE: This is a hospital day #3 for a female patient who was admitted for uncontrolled pain secondary to right groin pain. The patient states that the pain is getting much better, but she feels very weak and fatigued. The patient has been working with physical therapy, but this has been slow going secondary to the pain. The patient states that the muscle spasms have mostly resolved. The patient has some numbness and tingling of the right anterior thigh. The patient has not had any shortness of breath or chest pain. No focal neurological deficits. The patient denies any paresthesia or tingling to the right lower extremity. OBJECTIVE: General: The patient is alert. The patient is cooperative. The patient does not appear to be in any acute distress. Respiratory: Clear to auscultation. Cardiac: Regular rate and rhythm. No murmur. Abdomen: Soft, nontender. Bowel sounds are active x4. Musculoskeletal: The patient continues to have pinpoint tenderness over the right mid groin. No obvious bone deformity. CMS is intact. The patient is able to adduct and abduct the right lower extremity, but it is painful. Skin: Skin is intact. Skin is warm and dry. Neurological: The patient is alert. The patient is oriented x3. Sensation is intact. CMS is intact of the right lower extremity. Vital Signs: Temperature 97.8, pulse 62, blood pressure 115/43, respiratory rate 18, and oxygen saturation 98% on room air. ASSESSMENT: 1. Uncontrolled pain. 2. Right groin pain. 3. Fall. 4. Hypothyroidism. 5. Iron deficiency. 6. Lupus. 7. Primary osteoarthritis. PLAN: The patient will continue on scheduled morphine throughout today. Physical Therapy will continue to work with the patient. The patient did have an ultrasound of the right lower extremity which did not show any DVTs or blood clots. The patient will continue with physical therapy as they feel she needs to be skilled due to ongoing weakness and deconditioning. Therefore, the patient will transition to swing bed tomorrow under [facility] and physical therapy services. The patient is a code 1. The patient does wish to be transferred to higher level of care should the need arise. The patient will continue on acute cares through today and will be changed to swing bed tomorrow. Note: This patient was seen and examined by me as an [facility] provider. TB: 09/25/2018 07:41:45 MODL: 09/25/2018 11:44:32 /[id number] MTDD
[2018-09-25] MEDS: PROPRANOLOL HCL 80 MG PO SCH (19:31)
[2018-09-25] MEDS: Gabapentin 300 MG Cap PO SCH (19:31)
[2018-09-26] MEDS: Omeprazole 20 MG Cap.CR PO SCH (06:12)
[2018-09-26] MEDS ORDERED: Levothyroxine 100 MCG Tab PO SCH (07:00)
[2018-09-26] MEDS: FLUoxetine 10 MG Cap PO SCH (08:38)
[2018-09-26] MEDS: Gabapentin 100 MG Cap PO SCH (08:38)
--- NOTE | 2018-09-26 09:39 | PCM.DCSUM1 ---
Discharge Summary - Hospital Course HPI Initial Comments: Patient arrived to the ED at [facility] with complaints of progressively worsening right sided pelvis/hip pain. She has muscle spasms. She reports she fell 6 weeks ago and had some mild pain at the time but was able to walk with some soreness and stiffness. She states Friday she started having significant amounts of pain to the right hip and leg that has steadily progressed. She is brought in to the ED by her daughter and had great difficulty transferring to the stretcher due to the pain. She has history of lumbar discectomy. Hardware has been intact without incident. She denies change in LOC, no sob, no chest pain, no nausea or vomiting. She does state she has numbness/tingling to the bottoms of her feet but this is not new for her. She has pain in her right groin when moving her left leg. No nausea or vomiting. Denies blood in urine or stool. She has tried ibuprofen and has been taking her prescribed tramadol which has not helped. The patient is on a pain contract through [facility] per Dr. Moon Kruse. Diagnosis: Stroke: No Modified Penasco Scale: No Symptoms at All Modified Penasco Scale Score: 0 - Discharge Data Discharge Date: 09/26/18 Discharge Disposition: DC/Tfer W/I Hosp To Swing 61 Condition: Good - Patient Summary/Data Operative Procedure(s) Performed: None Complications: None Consults: Consultations 09/23/18 03:15 OT Evaluation and Treatment [CONS] Routine PT Evaluation and Treatment [CONS] Routine Labs Pending at D/C: None Recommended Follow-up Testing/Procedures: None Planned Operative Procedure(s) after DC: None Hospital Course: Patient remained hemodynamically stable and afebrile during her acute state. Patient continues to have pain in the right groin, but this is improving. Patient has weakness and deconditioning of the right lower extremity, therefore will require swing bed for physical therapy. Pain is under much better control. No issues with BM's or urination. Patient tolerating diet ok. Patient will be transitioned to swing bed today. - Patient Instructions Diet: Heart Healthy Diet Activity: As Tolerated, Full Weight Bearing Driving: Do Not Drive Showering/Bathing: May Shower Notify Provider of: Increased Pain - Discharge Plan *PRESCRIPTION DRUG MONITORING PROGRAM REVIEWED*: No *COPY OF PRESCRIPTION DRUG MONITORING REPORT IN PATIENT BRYANT: No Home Medications: Home Meds Clotrimazole/Betamethasone Dip [Lotrisone Cream] 1 applic TP BID PRN 11/03/17 [ History] Estrogens, Conjugated [Premarin] 0.3 mg PO MOWEFR@0800 11/03/17 [History] FLUoxetine HCl [Prozac] 10 mg PO Q2D 11/03/17 [History] Fexofenadine [Liliam] 180 mg PO DAILY PRN 11/03/17 [History] Fluticasone Propionate [Flonase] 2 spray WENDY DAILY PRN 11/03/17 [History] Gabapentin [Neurontin] 200 mg PO DAILY 11/03/17 [History] Gabapentin [Neurontin] 600 mg PO BEDTIME 11/03/17 [History] Levothyroxine [Synthroid] 100 mcg PO DAILY 11/03/17 [History] Propranolol HCl [Inderal LA] 80 mg PO DAILY 11/03/17 [History] SUMAtriptan [Imitrex] 100 mg PO ASDIRECTED PRN 11/03/17 [History] traMADol HCl [Ultram] 50 mg PO DAILY PRN 11/03/17 [History] ClonazePAM [KlonoPIN] 0.5 mg PO DAILY PRN 02/26/18 [History] Omeprazole Magnesium [Prilosec Otc] 20 mg PO DAILY 02/26/18 [History] FLUoxetine [PROzac] 20 mg PO Q2D 09/23/18 [History] traMADol [Ultram] 50 mg PO DAILY 09/23/18 [History] Calcium Carbonate/Vitamin D3 [Calcium 600 + Vit D 200] 1 each PO DAILY 09/24/18 [History] Estrogens, Conjugated [Premarin Vaginal Crm] 1 applic VAG ASDIRECTED 09/24/18 [ History] Oxygen Therapy Mode: Room Air Referrals: Moon Kruse DO [Primary Care Provider] - - Discharge Summary/Plan Comment DC Time >30 min.: No Discharge Summary/Plan Comment: Patient will be discharged from acute status and changed to swing bed for weakness and deconditioning. The patient's admission H&P is current as of the date of this discharge and will be used for admission H&P to swing bed. Will continue all home medications without and changes. - General Info Date of Service: 09/26/18 Admission Dx/Problem (Free Text: Uncontrolled pain Right Groin Pain Fall on concrete Hypothyroidism Lupus Iron Deficiency Primary Osteoarthritis Functional Status: Reports: Pain Controlled, Tolerating Diet, Ambulating, Urinating. Denies: New Symptoms - Review of Systems General: Reports: Weakness. Denies: Fever, Chills Pulmonary: Denies: Shortness of Breath, Cough Cardiovascular: Denies: Chest Pain, Palpitations Gastrointestinal: Reports: No Symptoms Skin: Reports: No Symptoms Neurological: Reports: Weakness (2/2 to fall) - Patient Data Vitals - Most Recent: Last Vital Signs Temp 97.7 F 09/26/18 06:00 Pulse 60 09/26/18 06:00 Resp 16 09/26/18 06:00 BP 122/99 H 09/26/18 06:00 Pulse Ox 95 09/26/18 06:00 Weight - Most Recent: 155 lb I&O - Last 24 hours: Intake & Output 09/25/18 09/26/18 09/26/18 22:59 06:59 14:59 Output Total 400 550 Balance -400 -550 Med Orders - Current: Current Medications Betamethasone/Clotrimazole (Lotrisone) 0 gm TOP BID PRN PRN Reason: Other Clonazepam (Klonopin) 0.5 mg PO DAILY PRN PRN Reason: Anxiety Last Admin: 09/24/18 12:15 Dose: 0.5 mg Diazepam (Valium.) 5 mg PO TID PRN PRN Reason: Spasms Last Admin: 09/23/18 07:58 Dose: 5 mg Docusate Sodium (Colace) 100 mg PO BID PRN PRN Reason: Constipation Fluoxetine HCl (Prozac) 20 mg PO Q2D@0800 [facility] Last Admin: 09/25/18 08:10 Dose: 20 mg Fluoxetine HCl (Prozac) 10 mg PO Q2D@0800 [facility] Last Admin: 09/26/18 08:38 Dose: 10 mg Fluticasone Propionate (Flonase) 0 gm WENDY DAILY PRN PRN Reason: Allergies Gabapentin (Neurontin) 200 mg PO DAILY [facility] Last Admin: 09/26/18 08:38 Dose: 200 mg Gabapentin (Neurontin) 600 mg PO BEDTIME [facility] Last Admin: 09/25/18 19:31 Dose: 600 mg Levothyroxine Sodium (Synthroid) 100 mcg PO ACBREAKFAST [facility] Last Admin: 09/26/18 06:12 Dose: 100 mcg Loratadine (Claritin) 10 mg PO DAILY PRN PRN Reason: hayfever Morphine Sulfate (Morphine) 2 mg IVPUSH Q2H PRN PRN Reason: Pain (severe 7-10) Last Admin: 09/25/18 22:32 Dose: 2 mg Estrogens, Conjugated [Premarin ] 0.3mg 0 mg PO MoWeFr@0800 [facility] Last Admin: 09/25/18 08:11 Dose: Not Given Non-Formulary Medication (Propranolol Hcl [Inderal La]) 80 mg PO BEDTIME [facility] Last Admin: 09/25/18 19:31 Dose: 80 mg Omeprazole (Omeprazole) 20 mg PO ACBREAKFAST [facility] Last Admin: 09/26/18 06:12 Dose: 20 mg Ondansetron HCl (Zofran) 4 mg IV Q6H PRN PRN Reason: Nausea/Vomiting Sodium Chloride (Saline Flush) 10 ml FLUSH ASDIRECTED PRN PRN Reason: Keep Vein Open Last Admin: 09/25/18 22:32 Dose: 10 ml Sumatriptan Succinate (Imitrex) 100 mg PO ASDIRECTED PILY Discontinued Medications Diazepam (Valium) 5 mg IVPUSH STAT ONE Stop: 09/23/18 00:58 Last Admin: 09/23/18 01:10 Dose: 5 mg Fluoxetine HCl (Prozac) 20 mg PO Q2D [facility] Levothyroxine Sodium (Synthroid) 100 mcg PO DAILY [facility] Last Admin: 09/24/18 07:42 Dose: Not Given Levothyroxine Sodium (Synthroid) 100 mcg PO DAILY [facility] Last Admin: 09/25/18 06:19 Dose: 100 mcg Morphine Sulfate (Morphine) 2 mg IVPUSH ONETIME ONE Stop: 09/22/18 22:52 Last Admin: 09/22/18 23:34 Dose: 2 mg Morphine Sulfate (Morphine) 2 mg IVPUSH ONETIME ONE Stop: 09/23/18 00:58 Last Admin: 09/23/18 01:30 Dose: 2 mg (Propranolol Hcl [ (Inderal La] 80mg) 0 mg PO DAILY [facility] Last Admin: 09/24/18 20:27 Dose: 80 mg Ondansetron HCl (Zofran) 4 mg IVPUSH ONETIME ONE Stop: 09/22/18 23:12 Last Admin: 09/22/18 23:33 Dose: 4 mg - Exam Quality Assessment: Denies: DVT Prophylaxis, Skin Breakdown General: Reports: Alert, Oriented, Cooperative, No Acute Distress Lungs: Reports: Clear to Auscultation, Normal Respiratory Effort Cardiovascular: Reports: Regular Rate, Regular Rhythm GI/Abdominal Exam: Normal Bowel Sounds, Soft, Non-Tender Skin: Reports: Warm, Dry, Intact Neurological: Reports: No New Focal Deficit *Q Meaningful Use (DIS) - VTE *Q VTE Mechanical Contraindications *Q: At Risk for Falls
[2018-09-26] MEDS ORDERED: TRAMADOL HCL 50 MG PO PRN (10:56)
[2018-09-26] MEDS ORDERED: ESTROGENS CONJUGATED VAG SCH (11:00)
[2018-09-26] MEDS ORDERED: FLUoxetine 10 MG Cap PO SCH (11:00)
[2018-09-27] MEDS ORDERED: CALCIUM CARBONATE PO SCH (08:00)
[2018-09-27] MEDS ORDERED: VITAMIN D3 PO SCH (08:00)
[2018-09-27] MEDS ORDERED: Non-Formulary Medication 1 Each (Tramadol [Ultram] 50 MG) PO SCH (08:00)
== END 2018-09-26 11:51 | disposition swing bed (61) | DRG 948 ==
LOC: VM.ED 22:24 → VM.MS 09-23 02:00
PROVIDERS: ADMIT Nurse Practitioner Family; ATTEND Nurse Practitioner Family
DX: R53.1 Weakness (principal); M62.838 Other muscle spasm; F41.1 Generalized anxiety disorder; M19.91 Primary osteoarthritis, unspecified site; M32.9 Systemic lupus erythematosus, unspecified; M79.604 Pain in right leg; M62.830 Muscle spasm of back; Z90.49 Acquired absence of other specified parts of digestive tract; Z88.0 Allergy status to penicillin; H81.09 Meniere's disease, unspecified ear; I10 Essential (primary) hypertension; E61.1 Iron deficiency; G43.909 Migraine, unspecified, not intractable, without status migrainosus; K21.9 Gastro-esophageal reflux disease without esophagitis; I73.00 Raynaud's syndrome without gangrene; Z90.89 Acquired absence of other organs; M79.7 Fibromyalgia; F32.9 Major depressive disorder, single episode, unspecified; E03.9 Hypothyroidism, unspecified; Z88.1 Allergy status to other antibiotic agents; Z88.5 Allergy status to narcotic agent; Z88.8 Allergy status to other drugs, medicaments and biological substances; Z79.890 Hormone replacement therapy; Z79.899 Other long term (current) drug therapy
CPT/HCPCS: 72131; 72192; 96374; 96375 ×2; 96376; 99284; J2270 ×2; J2405; J3360; 36415; 80053; 81003; 85025; 85379; 85610; 85652; 86140; 93926; 93971-RT; 97110-GP; 97116-GP; 97162-GP; 97165-GO; 97535-GO; A9270-GY

== ENCOUNTER 2018-09-26 11:07 | Inpatient (IN) | payer MEDICARE, BC ==
[~2018-09-26 11:07] MED LIST: Betamethasone Dipropionate/Clotrimazole 0.05-1% Crm 15 GM Tube TOP PRN; Docusate Sodium 100 MG Cap PO PRN; Fluticasone Propionate Nasal Spray 16 GM Bottle NAS PRN; Ondansetron 4 MG Tab.DIS PO PRN; Polyethylene Glycol 3350 Powder 17 GM Packet PO PRN; SUMAtriptan 50 MG Tab PO PRN
[2018-09-26] MEDS ORDERED: ESTROGENS CONJUGATED VAG SCH (11:15)
[2018-09-26] MEDS: traMADol 50 MG Tab PO PRN (12:25)
[2018-09-26] MEDS: ClonazePAM 0.5 MG Tab PO PRN (15:34)
[2018-09-26] MEDS: Acetaminophen 325 MG Tab PO PRN (15:49)
[2018-09-26] MEDS: PROPRANOLOL HCL 80 MG PO SCH (19:53)
[2018-09-26] MEDS: Gabapentin 300 MG Cap PO SCH (19:53)
[2018-09-26] MEDS ORDERED: Non-Formulary Medication 1 Each PO SCH (20:00)
[2018-09-27] MEDS: Omeprazole 20 MG Cap.CR PO SCH (06:09)
[2018-09-27] MEDS: Levothyroxine 100 MCG Tab PO SCH (06:10)
[2018-09-27] MEDS ORDERED: FLUoxetine 10 MG Cap PO SCH (08:00)
[2018-09-27] MEDS: Loratadine 10 MG Tab PO SCH (08:07)
[2018-09-27] MEDS: Calcium Carbonate/Vitamin D3 1250 MG-200 Unit Tab PO SCH (08:07)
[2018-09-27] MEDS: Gabapentin 100 MG Cap PO SCH (08:08)
[2018-09-27] MEDS: traMADol 50 MG Tab PO SCH (08:08)
[2018-09-27] MEDS: traMADol 50 MG Tab PO PRN (12:36)
[2018-09-27] MEDS: Ibuprofen 200 MG Tab PO PRN (18:26)
[2018-09-27] MEDS: PROPRANOLOL HCL 80 MG PO SCH (19:35)
[2018-09-27] MEDS: Magnesium Hydroxide 400 MG/5 ML Susp 30 ML Cup PO PRN (19:37)
[2018-09-27] MEDS: Gabapentin 300 MG Cap PO SCH (19:41)
[2018-09-28] MEDS: Levothyroxine 100 MCG Tab PO SCH (06:24)
[2018-09-28] MEDS: Omeprazole 20 MG Cap.CR PO SCH (06:24)
[2018-09-28] MEDS: Calcium Carbonate/Vitamin D3 1250 MG-200 Unit Tab PO SCH (07:31)
[2018-09-28] MEDS: Gabapentin 100 MG Cap PO SCH (07:39)
[2018-09-28] MEDS: Loratadine 10 MG Tab PO SCH (07:40)
[2018-09-28] MEDS: Acetaminophen 325 MG Tab PO PRN (07:40)
[2018-09-28] MEDS: traMADol 50 MG Tab PO SCH (07:41)
[2018-09-28] MEDS ORDERED: FLUoxetine 20 MG Cap PO SCH (08:00)
[2018-09-28] MEDS: Ibuprofen 200 MG Tab PO PRN ×2 (09:37→18:08)
[2018-09-28] MEDS: ClonazePAM 0.5 MG Tab PO PRN (09:37)
[2018-09-28] MEDS: ESTROGENS CONJUGATED 0.3 MG PO SCH (13:03)
[2018-09-28] MEDS: FLUoxetine 10 MG Cap PO SCH (13:04)
[2018-09-28] MEDS: PROPRANOLOL HCL 80 MG PO SCH (19:32)
[2018-09-28] MEDS: Magnesium Hydroxide 400 MG/5 ML Susp 30 ML Cup PO PRN (19:33)
[2018-09-28] MEDS: Gabapentin 300 MG Cap PO SCH (19:33)
[2018-09-29] MEDS: Omeprazole 20 MG Cap.CR PO SCH (06:00)
[2018-09-29] MEDS: Levothyroxine 100 MCG Tab PO SCH (06:00)
[2018-09-29] MEDS: Gabapentin 100 MG Cap PO SCH (07:52)
[2018-09-29] MEDS: Loratadine 10 MG Tab PO SCH (07:52)
[2018-09-29] MEDS: traMADol 50 MG Tab PO SCH (07:52)
[2018-09-29] MEDS: Calcium Carbonate/Vitamin D3 1250 MG-200 Unit Tab PO SCH (07:52)
[2018-09-29] MEDS: FLUoxetine 20 MG Cap PO SCH (07:56)
[2018-09-29] MEDS: Ibuprofen 200 MG Tab PO PRN (12:12)
[2018-09-29] MEDS: Gabapentin 300 MG Cap PO SCH (19:33)
[2018-09-29] MEDS: PROPRANOLOL HCL 80 MG PO SCH (19:34)
[2018-09-30] MEDS: Levothyroxine 100 MCG Tab PO SCH (06:05)
[2018-09-30] MEDS: Omeprazole 20 MG Cap.CR PO SCH (06:05)
[2018-09-30] MEDS: Loratadine 10 MG Tab PO SCH (07:49)
[2018-09-30] MEDS: Calcium Carbonate/Vitamin D3 1250 MG-200 Unit Tab PO SCH ×2 (07:49→07:54)
[2018-09-30] MEDS: traMADol 50 MG Tab PO SCH (07:50)
[2018-09-30] MEDS: ESTROGENS CONJUGATED 0.3 MG PO SCH (07:51)
[2018-09-30] MEDS: Gabapentin 100 MG Cap PO SCH (08:02)
[2018-09-30] MEDS: FLUoxetine 10 MG Cap PO SCH (09:35)
[2018-09-30] MEDS: Ibuprofen 200 MG Tab PO PRN (12:09)
[2018-09-30] MEDS: PROPRANOLOL HCL 80 MG PO SCH (19:16)
[2018-09-30] MEDS: Gabapentin 300 MG Cap PO SCH (19:16)
[2018-10-01] MEDS: Levothyroxine 100 MCG Tab PO SCH (06:32)
[2018-10-01] MEDS: Omeprazole 20 MG Cap.CR PO SCH (06:32)
[2018-10-01] MEDS: traMADol 50 MG Tab PO SCH (08:29)
[2018-10-01] MEDS: Loratadine 10 MG Tab PO SCH (08:30)
[2018-10-01] MEDS: Gabapentin 100 MG Cap PO SCH (08:31)
[2018-10-01] MEDS: Calcium Carbonate/Vitamin D3 1250 MG-200 Unit Tab PO SCH (08:31)
[2018-10-01] MEDS: FLUoxetine 20 MG Cap PO SCH (08:38)
[2018-10-01] MEDS: ClonazePAM 0.5 MG Tab PO PRN (10:47)
[2018-10-01] MEDS: Ibuprofen 200 MG Tab PO PRN (10:48)
--- NOTE | 2018-10-09 20:49 | PCM.DCSUM1 ---
Discharge Summary - Hospital Course Free Text/Narrative:: 73 year old female admitted with complaints of intractable hip and leg pain Imaging revealed OA of hip but no fractures. Therapy consulted to eval and treat. Found patient to have hip flexor tendonitis as well. Patient also with history of chronic SI joint pain and previous lumbar herniated disc. Diagnosis: Stroke: No - Discharge Data Discharge Date: 10/01/18 Discharge Disposition: Home, Self-Care 01 Condition: Good - Discharge Diagnosis/Problem(s) (1) Back muscle spasm SNOMED Code(s): 402522134 ICD Code: M62.830 - MUSCLE SPASM OF BACK Status: Acute Priority: Low (2) Iron deficiency anemia, unspecified SNOMED Code(s): 94073822 ICD Code: D50.9 - IRON DEFICIENCY ANEMIA, UNSPECIFIED Status: Acute (3) Right leg pain SNOMED Code(s): 431751322 ICD Code: M79.604 - PAIN IN RIGHT LEG Status: Acute Priority: Low (4) RONAL (generalized anxiety disorder) SNOMED Code(s): 34100387 ICD Code: F41.1 - GENERALIZED ANXIETY DISORDER Status: Chronic (5) Hypertension SNOMED Code(s): 19388498 ICD Code: I10 - ESSENTIAL (PRIMARY) HYPERTENSION Status: Chronic (6) Hypothyroidism SNOMED Code(s): 09426849 ICD Code: E03.9 - HYPOTHYROIDISM, UNSPECIFIED Status: Chronic - Patient Summary/Data Consults: Consultations 09/26/18 11:06 Consult to Case Management/Heliotherapist [CONS] Routine PT Evaluation and Treatment [CONS] Routine Hospital Course: 73 year old female admitted to swing bed for continued therapy. Pt with OA of hip and hip flexor tendonitis. Initially unable to do stairs. Pt resides on [facility]. Elevator was out of service. Swing bed course was unremarkable. pt participated in therapy. Pain control was achieved. When patient was able to safely climb stairs the decision was made to discharge her home. - Patient Instructions Diet: Regular Diet as Tolerated - Discharge Plan *PRESCRIPTION DRUG MONITORING PROGRAM REVIEWED*: Not Applicable (Completed quarterly by PCP at clinic) *COPY OF PRESCRIPTION DRUG MONITORING REPORT IN PATIENT BRYANT: No (Performed in clinic every three months) Home Medications: Home Meds Estrogens, Conjugated [Premarin] 0.3 mg PO MOWEFR@0800 11/03/17 [History] FLUoxetine HCl [Prozac] 10 mg PO Q2D 11/03/17 [History] Fexofenadine [Liliam] 180 mg PO DAILY PRN 11/03/17 [History] Fluticasone Propionate [Flonase] 2 spray NASBOTH DAILY PRN 11/03/17 [History] Gabapentin [Neurontin] 300 mg PO DAILY 11/03/17 [History] Gabapentin [Neurontin] 600 mg PO BEDTIME 11/03/17 [History] Levothyroxine [Synthroid] 100 mcg PO DAILY 11/03/17 [History] Propranolol HCl [Inderal LA] 80 mg PO DAILY 11/03/17 [History] SUMAtriptan [Imitrex] 100 mg PO ASDIRECTED PRN 11/03/17 [History] traMADol HCl [Ultram] 50 mg PO DAILY PRN 11/03/17 [History] ClonazePAM [KlonoPIN] 0.25 mg PO DAILY PRN 02/26/18 [History] Omeprazole Magnesium [Prilosec Otc] 20 mg PO DAILY 02/26/18 [History] FLUoxetine [PROzac] 20 mg PO Q2D 09/23/18 [History] traMADol [Ultram] 50 mg PO DAILY 09/23/18 [History] Calcium Carbonate/Vitamin D3 [Calcium 600 + Vit D 200] 1 each PO DAILY 09/24/18 [History] Estrogens, Conjugated [Premarin Vaginal Crm] 1 applic VAG ASDIRECTED PRN [History] Acetaminophen [Tylenol] 650 mg PO Q4H PRN tablet 10/01/18 [Rx] Docusate Sodium [Colace] 100 mg PO BID PRN cap 10/01/18 [Rx] Ibuprofen [Motrin] 800 mg PO Q6H PRN tablet 10/01/18 [Rx] Magnesium Hydroxide [Milk of Magnesia] 30 ml PO Q12H PRN cup 10/01/18 [Rx] Ondansetron [Zofran ODT] 4 mg PO Q6H PRN tab.dis 10/01/18 [Rx] Polyethylene Glycol 3350 [MiraLAX] 17 gm PO DAILY PRN packet 10/01/18 [Rx] Oxygen Therapy Mode: Room Air Referrals: Moon Kruse DO [Primary Care Provider] - - Discharge Summary/Plan Comment DC Time >30 min.: No Discharge Summary/Plan Comment: Patient will be discharged home to care of self. She will follow up in clinic next week. She will continue with outpatient physical therapy. Medications per reconciliation. At time of discharge, vital signs are stable- pt is tolerating a regular diet, voiding and stooling without difficulty. She is ambulating independently - General Info Date of Service: 10/01/18 Subjective Update: Patient states she is feeling well and feels she can safely return home. Functional Status: Reports: Pain Controlled - Review of Systems General: Reports: No Symptoms HEENT: Reports: No Symptoms Pulmonary: Reports: No Symptoms. Denies: Shortness of Breath Cardiovascular: Denies: Chest Pain Gastrointestinal: Denies: Abdominal Pain Genitourinary: Reports: No Symptoms Musculoskeletal: Reports: Joint Pain - Patient Data Vitals - Most Recent: Last Vital Signs Temp 37.1 C 10/01/18 06:00 Pulse 54 L 10/01/18 06:00 Resp 16 10/01/18 06:00 BP 114/43 L 10/01/18 06:00 Pulse Ox 94 L 10/01/18 06:00 Weight - Most Recent: 68.946 kg Med Orders - Current: Current Medications Discontinued Medications Acetaminophen (Tylenol) 650 mg PO Q4H PRN PRN Reason: Pain (Mild 1-3)/fever Last Admin: 09/26/18 15:49 Dose: 650 mg Betamethasone/Clotrimazole (Lotrisone) 0 gm TOP BID PRN PRN Reason: Other Calcium Carbonate (Calcium Carbonate/Vitamin D 1250 Mg-200 Unit) 1 tab PO DAILY [facility] Last Admin: 10/01/18 08:31 Dose: Not Given Clonazepam (Klonopin) 0.5 mg PO DAILY PRN PRN Reason: Anxiety Last Admin: 10/01/18 10:47 Dose: 0.5 mg Docusate Sodium (Colace) 100 mg PO BID PRN PRN Reason: Constipation Fluoxetine HCl (Prozac) 20 mg PO Q2D [facility] Last Admin: 09/27/18 08:10 Dose: 20 mg Fluoxetine HCl (Prozac) 10 mg PO Q2D [facility] Last Admin: 09/28/18 11:03 Dose: Not Given Fluoxetine HCl (Prozac) 10 mg PO Q2D [facility] Last Admin: 09/30/18 09:35 Dose: 10 mg Fluoxetine HCl (Prozac) 20 mg PO Q2D [facility] Last Admin: 10/01/18 08:38 Dose: 20 mg Fluticasone Propionate (Flonase) 0 gm WENDY DAILY PRN PRN Reason: Allergies Gabapentin (Neurontin) 200 mg PO DAILY [facility] Last Admin: 10/01/18 08:31 Dose: 200 mg Gabapentin (Neurontin) 600 mg PO BEDTIME [facility] Last Admin: 09/30/18 19:16 Dose: 600 mg Ibuprofen (Motrin) 800 mg PO Q6H PRN PRN Reason: Pain/Fever Last Admin: 10/01/18 10:48 Dose: 800 mg Levothyroxine Sodium (Synthroid) 100 mcg PO ACBREAKFAST [facility] Last Admin: 10/01/18 06:32 Dose: 100 mcg Loratadine (Claritin) 10 mg PO DAILY [facility] Last Admin: 10/01/18 08:30 Dose: 10 mg Magnesium Hydroxide (Milk Of Magnesia) 30 ml PO Q12H PRN PRN Reason: Constipation Last Admin: 09/28/18 19:33 Dose: 30 ml Own Supply: Estrogens, Conjugated [Premarin ] 0.3mg 1 mg PO MOWEFR@0800 [facility] Last Admin: 09/30/18 07:51 Dose: 1 mg Own Supply: Estrogens, Conjugated [Premarin Vaginal Crm] 1 applic VAG ASDIRECTED [facility] Own Supply: Propranolol Hcl [ Inderal La] 80 Mg Cap 0 mg PO BEDTIME [facility] Last Admin: 09/30/18 19:16 Dose: 80 mg Non-Formulary Medication (Nf Drug) 80 each PO BEDTIME [facility] Omeprazole (Omeprazole) 20 mg PO DAILY@0700 [facility] Last Admin: 10/01/18 06:32 Dose: 20 mg Ondansetron HCl (Zofran Odt) 4 mg PO Q6H PRN PRN Reason: nausea, able to take PO Polyethylene Glycol (Miralax) 17 gm PO DAILY PRN PRN Reason: Constipation Sumatriptan Succinate (Imitrex) 100 mg PO ASDIRECTED PRN PRN Reason: Headache Tramadol HCl (Ultram) 50 mg PO DAILY PRN PRN Reason: Pain Last Admin: 09/27/18 12:36 Dose: 50 mg Tramadol HCl (Ultram) 50 mg PO DAILY [facility] Last Admin: 10/01/18 08:29 Dose: 50 mg - Exam General: Reports: Alert, Oriented HEENT: Reports: Pupils Equal, EOMI Neck: Reports: Supple Lungs: Reports: Clear to Auscultation, Normal Respiratory Effort Cardiovascular: Reports: Regular Rate GI/Abdominal Exam: Normal Bowel Sounds Extremities: Normal Inspection Skin: Reports: Warm, Dry Neurological: Reports: Normal Gait
== END 2018-10-01 12:33 | disposition home or self-care (01) | DRG 558 ==
LOC: VM.MS 11:07
PROVIDERS: ADMIT Nurse Practitioner Family; ATTEND Nurse Practitioner Family
DX: M76.891 Other specified enthesopathies of right lower limb, excluding foot (principal); R10.31 Right lower quadrant pain; E03.9 Hypothyroidism, unspecified; M16.11 Unilateral primary osteoarthritis, right hip; M19.91 Primary osteoarthritis, unspecified site; G89.29 Other chronic pain; M62.830 Muscle spasm of back; R29.898 Other symptoms and signs involving the musculoskeletal system; D50.9 Iron deficiency anemia, unspecified; F41.1 Generalized anxiety disorder; I10 Essential (primary) hypertension; Z98.890 Other specified postprocedural states; Z79.51 Long term (current) use of inhaled steroids; Z79.899 Other long term (current) drug therapy
CPT/HCPCS: 97110-GP; 97116-GP; A9270-GY

== ENCOUNTER 2018-11-01 16:43 | Emergency (ER) | payer MEDICARE, BC ==
[2018-11-01] MEDS ORDERED: Sodium Chloride 0.9% 10 ML Syringe FLUSH PRN (16:51)
[2018-11-01] MEDS ORDERED: Sodium Chloride 0.9% 1,000 ML IV ONE (16:58)
[2018-11-01] MEDS ORDERED: Ondansetron 4 MG/2 ML SDV IVPUSH ONE (16:58)
--- NOTE | 2018-11-01 17:44 | CR ---
[id number] RAD/RAD Chest PA or AP 1V EXAM: RAD Chest PA or AP 1V INDICATION: CHEST PAIN. COMPARISON: None. DISCUSSION: Cardiomediastinal silhouette is normal in size and contour. No infiltrate, effusion, pneumothorax, or edema. IMPRESSION: Negative examination of the chest. Darryl Moss MD 11/01/18 4445 Thank you for allowing us to participate in the care of your patient.
--- NOTE | 2018-11-01 17:53 | EDM.PDOC ---
ED HPI GENERAL MEDICAL PROBLEM - General Chief Complaint: Gastrointestinal Problem Stated Complaint: GENERAL Time Seen by Provider: 11/01/18 16:43 Source of Information: Reports: Patient History Limitations: Reports: No Limitations - History of Present Illness INITIAL COMMENTS - FREE TEXT/NARRATIVE: Pt. presents to ER with complaints of body aches, fatigue, nausea, vomiting, and diarrhea. Denies any fever. She states that she "always feels cold" and denies any new chills. She complains of tremors. She complains of mild cough. She complains of L sided anterior chest and shoulder pain. The discomfort is worse with deep breathing, palpation and movement of the area. Pt. denies any rashes. Pt. seen in ER with similar symptoms in July and was diagnosed with UTI. She states that she has had 7 UTIs within the past few months. She states that she has a referral to [facility]. Pt. denies any recent trauma. No difficulty with speech or ambulation. Family states that she has been mildly confused, but she was alert and oriented for staff today. - Related Data Allergies Allergy/AdvReac Type Severity Reaction Status Date / Time Sulfa (Sulfonamide Allergy Unknown Other Verified 11/01/18 17:15 Antibiotics) azithromycin [From Zithromax] Allergy Other Verified 11/01/18 17:15 clarithromycin [From Biaxin] Allergy Other Verified 11/01/18 17:15 codeine Allergy Shortness Verified 11/01/18 17:15 of Breath hydroxyzine Allergy Other Verified 11/01/18 17:15 meperidine [From Demerol] Allergy Shortness Verified 11/01/18 17:15 of Breath metoclopramide [From Reglan] Allergy Other Verified 11/01/18 17:15 Phenothiazines Allergy Other Verified 11/01/18 17:15 promethazine Allergy Other Verified 11/01/18 17:15 acetaminophen [From Tylenol] AdvReac Anxiety Verified 11/01/18 17:15 propoxyphene [From Darvon] AdvReac Stomach Verified 11/01/18 17:15 Upset Home Meds: Home Meds Estrogens, Conjugated [Premarin] 0.3 mg PO MOWEFR@0800 11/03/17 [History] FLUoxetine HCl [Prozac] 10 mg PO Q2D 11/03/17 [History] Fexofenadine [Liliam] 180 mg PO DAILY PRN 11/03/17 [History] Fluticasone Propionate [Flonase] 2 spray NASBOTH DAILY PRN 11/03/17 [History] Gabapentin [Neurontin] 300 mg PO DAILY 11/03/17 [History] Gabapentin [Neurontin] 600 mg PO BEDTIME 11/03/17 [History] Levothyroxine [Synthroid] 100 mcg PO DAILY 11/03/17 [History] Propranolol HCl [Inderal LA] 80 mg PO DAILY 11/03/17 [History] SUMAtriptan [Imitrex] 100 mg PO ASDIRECTED PRN 11/03/17 [History] traMADol HCl [Ultram] 50 mg PO DAILY PRN 11/03/17 [History] ClonazePAM [KlonoPIN] 0.25 mg PO DAILY PRN 02/26/18 [History] Omeprazole Magnesium [Prilosec Otc] 20 mg PO DAILY 02/26/18 [History] FLUoxetine [PROzac] 20 mg PO Q2D 09/23/18 [History] traMADol [Ultram] 50 mg PO DAILY 09/23/18 [History] Calcium Carbonate/Vitamin D3 [Calcium 600 + Vit D 200] 1 each PO DAILY 09/24/18 [History] Estrogens, Conjugated [Premarin Vaginal Crm] 1 applic VAG ASDIRECTED PRN [History] Acetaminophen [Tylenol] 650 mg PO Q4H PRN tablet 10/01/18 [Rx] Docusate Sodium [Colace] 100 mg PO BID PRN cap 10/01/18 [Rx] Ibuprofen [Motrin] 800 mg PO Q6H PRN tablet 10/01/18 [Rx] Magnesium Hydroxide [Milk of Magnesia] 30 ml PO Q12H PRN cup 10/01/18 [Rx] Ondansetron [Zofran ODT] 4 mg PO Q6H PRN tab.dis 10/01/18 [Rx] Polyethylene Glycol 3350 [MiraLAX] 17 gm PO DAILY PRN packet 10/01/18 [Rx] Past Medical History HEENT History: Reports: Other (See Below) Other HEENT History: meniere's disease Cardiovascular History: Reports: Hypertension Other Cardiovascular History: raynaud's syndrome Gastrointestinal History: Reports: GERD Other Genitourinary History: microscopic hematuria. stress incontinence. voiding dysfunction Musculoskeletal History: Reports: Osteoarthritis Other Musculoskeletal History: spinal stenosis. radial styloid tenosynovitis of both hands. osteopenia. ganglion cyst. cervical spinal stenosis. trigger finger. back surgery. chronic si joint pain Neurological History: Reports: Migraines Other Neuro History: fibromyalgia Psychiatric History: Reports: Depression Other Psychiatric History: pain contract Endocrine/Metabolic History: Reports: Hypothyroidism Other Endocrine/Metabolic History: lupus Hematologic History: Reports: Anemia Dermatologic History: Reports: Other (See Below) Other Dermatologic History: pruritic disorder - Past Surgical History HEENT Surgical History: Reports: Polypectomy, Tonsillectomy GI Surgical History: Reports: Cholecystectomy, Colonoscopy, EGD Female Surgical History: Reports: Hysterectomy Other Musculoskeletal Surgeries/Procedures:: temporomandibular joint surgery. lumbar laminectomy. cyst removal right wrist Social & Family History - Tobacco Use Smoking Status *Q: Unknown Ever Smoked - Caffeine Use Caffeine Use: Reports: Coffee ED ROS GENERAL - Review of Systems Review Of Systems: See Below Constitutional: Reports: Chills, Fatigue HEENT: Reports: No Symptoms Respiratory: Reports: No Symptoms Cardiovascular: Reports: No Symptoms Endocrine: Reports: No Symptoms GI/Abdominal: Reports: No Symptoms : Reports: No Symptoms. Denies: Dysuria, Frequency, Urgency Musculoskeletal: Reports: No Symptoms Skin: Reports: No Symptoms Neurological: Reports: No Symptoms Psychiatric: Reports: No Symptoms Hematologic/Lymphatic: Reports: No Symptoms Immunologic: Reports: No Symptoms ED EXAM, GENERAL - Physical Exam Exam: See Below Exam Limited By: No Limitations General Appearance: Alert, WD/WN, No Apparent Distress Eye Exam: Bilateral Eye: EOMI, Normal Fundi, Normal Inspection, PERRL Nose: Normal Inspection, Normal Mucosa, No Blood Throat/Mouth: Normal Inspection, Normal Lips, Normal Teeth, Normal Gums, Normal Oropharynx, Normal Voice, No Airway Compromise Head: Atraumatic, Normocephalic Neck: Normal Inspection, Supple, Non-Tender, Full Range of Motion Respiratory/Chest: No Respiratory Distress, Lungs Clear, Normal Breath Sounds, No Accessory Muscle Use, Chest Non-Tender Cardiovascular: Normal Peripheral Pulses, Regular Rate, Rhythm, No Edema, No Gallop, No JVD, No Murmur Peripheral Pulses: 4+: Radial (R) GI/Abdominal: Normal Bowel Sounds, Soft, Non-Tender, No Organomegaly, No Distention, No Mass (Female) Exam: Deferred Rectal (Female) Exam: Deferred Back Exam: Normal Inspection, Full Range of Motion Extremities: Normal Inspection, Normal Range of Motion, Non-Tender, No Pedal Edema, Normal Capillary Refill Neurological: Alert, Oriented, CN II-XII Intact, Normal Cognition, Normal Gait, No Motor/Sensory Deficits Psychiatric: Normal Affect, Normal Mood Skin Exam: Warm, Dry, Intact, No Rash, Pallor EKG INTERPRETATION Rhythm: NSR [place]: Normal P-Wave: Present QRS: Normal ST-T: Normal QT: Normal Course - Vital Signs Last Recorded V/S: Last Vital Signs Temp 37.4 C 11/01/18 16:43 Pulse 79 11/01/18 16:43 Resp 18 11/01/18 16:43 BP 131/50 L 11/01/18 16:43 Pulse Ox 95 11/01/18 16:43 - Orders/Labs/Meds Orders: Active Orders 24 hr Category Date Time Status EKG Documentation Completion [RC] STAT Care 11/01/18 16:50 Active CULTURE BLOOD [BC] Stat Lab 11/01/18 17:20 Received CULTURE BLOOD [BC] Stat Lab 11/01/18 17:29 Results CULTURE URINE [RM] Stat Lab 11/01/18 17:52 Received Blood Culture x2 Reflex Set [OM.PC] Stat Oth 11/01/18 16:52 Ordered Peripheral IV Insertion Adult [OM.PC] Routine Oth 11/01/18 16:52 Ordered Labs: Laboratory Tests 11/01/18 11/01/18 11/01/18 Range/Units 17:20 17:20 17:20 WBC 10.8 H (4.0-10.0) x10^3/uL RBC 4.36 (4.00-5.50) x10^6/uL Hgb 12.9 (12.0-16.0) g/dL Hct 39.2 (33.0-47.0) % MCV 89.9 (78.0-93.0) fL MCH 29.6 (26.0-32.0) pg MCHC 32.9 (32.0-36.0) g/dL RDW Coeff of Rick 12.8 (10.0-15.0) % Plt Count 222 (130-400) x10^3/uL Neut % (Auto) 76.1 (50.0-80.0) % Lymph % (Auto) 11.6 L (25.0-50.0) % [place] % (Auto) 11.4 H (2.0-11.0) % Eos % (Auto) 0.3 (0.0-4.0) % Baso % (Auto) 0.6 (0.2-1.2) % PT 10.3 (10.0-12.8) SEC INR 0.9 L (2.0-3.5) Sodium 139 (136-145) mmol/L Potassium 4.2 (3.5-5.1) mmol/L Chloride 101 (98-107) mmol/L Carbon Dioxide 27 (21-32) mmol/L Anion Gap 15.2 (10-20) mmol/L BUN 13 (7-18) mg/dL Creatinine 0.8 (0.55-1.02) mg/dL Est Cr Clr Drug Dosing TNP Estimated GFR (MDRD) > 60 Glucose 122 H (74-106) mg/dL Lactic Acid (0.4-2.0) mmol/L Calcium 8.8 (8.5-10.1) mg/dL Corrected Calcium 9.44 (8.5-10.1) mg/dL Phosphorus 3.5 (2.6-4.7) mg/dL Magnesium 2.2 (1.8-2.4) mg/dL Total Bilirubin 1.0 (0.2-1.0) mg/dL AST 12 L (15-37) U/L ALT 19 (14-59) U/L Alkaline Phosphatase 73 (46-116) U/L Troponin I < 0.017 (<=0.056) ng/mL C-Reactive Protein 10.1 H (<=0.9) mg/dL Total Protein 6.7 (6.4-8.2) g/dL Albumin 3.2 L (3.4-5.0) g/dL Globulin 3.5 Albumin/Globulin Ratio 0.91 TSH, Ultra Sensitive 0.320 L (0.358-3.74) uIU/mL Urine Color (YELLOW) Urine Appearance (CLEAR) Urine pH (5.0-8.0) Ur Specific [place] Urine Protein (NEGATIVE) mg/dL Urine Glucose (UA) (NEGATIVE) mg/dL Urine Ketones (NEGATIVE) mg/dL Urine Occult Blood (NEGATIVE) Urine Nitrite (NEGATIVE) Urine Bilirubin (NEGATIVE) Urine Urobilinogen (0.2) EU/dL Ur Leukocyte Esterase (NEGATIVE) Urine RBC (NOT SEEN) /HPF Urine WBC (NOT SEEN) /HPF Ur Squamous Epith Cells (NEGATIVE) /HPF Urine Bacteria (NEGATIVE) /HPF Urine Mucus (NEGATIVE) /LPF 11/01/18 11/01/18 Range/Units 17:20 17:52 WBC (4.0-10.0) x10^3/uL RBC (4.00-5.50) x10^6/uL Hgb (12.0-16.0) g/dL Hct (33.0-47.0) % MCV (78.0-93.0) fL MCH (26.0-32.0) pg MCHC (32.0-36.0) g/dL RDW Coeff of Rick (10.0-15.0) % Plt Count (130-400) x10^3/uL Neut % (Auto) (50.0-80.0) % Lymph % (Auto) (25.0-50.0) % [place] % (Auto) (2.0-11.0) % Eos % (Auto) (0.0-4.0) % Baso % (Auto) (0.2-1.2) % PT (10.0-12.8) SEC INR (2.0-3.5) Sodium (136-145) mmol/L Potassium (3.5-5.1) mmol/L Chloride (98-107) mmol/L Carbon Dioxide (21-32) mmol/L Anion Gap (10-20) mmol/L BUN (7-18) mg/dL Creatinine (0.55-1.02) mg/dL Est Cr Clr Drug Dosing Estimated GFR (MDRD) Glucose (74-106) mg/dL Lactic Acid 0.9 (0.4-2.0) mmol/L Calcium (8.5-10.1) mg/dL Corrected Calcium (8.5-10.1) mg/dL Phosphorus (2.6-4.7) mg/dL Magnesium (1.8-2.4) mg/dL Total Bilirubin (0.2-1.0) mg/dL AST (15-37) U/L ALT (14-59) U/L Alkaline Phosphatase (46-116) U/L Troponin I (<=0.056) ng/mL C-Reactive Protein (<=0.9) mg/dL Total Protein (6.4-8.2) g/dL Albumin (3.4-5.0) g/dL Globulin Albumin/Globulin Ratio TSH, Ultra Sensitive (0.358-3.74) uIU/mL Urine Color Yellow (YELLOW) Urine Appearance Slightly cloudy H (CLEAR) Urine pH 7.0 (5.0-8.0) Ur Specific [place] 1.020 Urine Protein 30 H (NEGATIVE) mg/dL Urine Glucose (UA) Negative (NEGATIVE) mg/dL Urine Ketones 40 H (NEGATIVE) mg/dL Urine Occult Blood Trace-intact H (NEGATIVE) Urine Nitrite Positive H (NEGATIVE) Urine Bilirubin Negative (NEGATIVE) Urine Urobilinogen 0.2 (0.2) EU/dL Ur Leukocyte Esterase Moderate H (NEGATIVE) Urine RBC 0-5 (NOT SEEN) /HPF Urine WBC 20-30 H (NOT SEEN) /HPF Ur Squamous Epith Cells Many H (NEGATIVE) /HPF Urine Bacteria Moderate H (NEGATIVE) /HPF Urine Mucus Rare H (NEGATIVE) /LPF Meds: Medications Discontinued Medications Generic Name Dose Route Start Last Admin Trade Name Keyna PRN Reason Stop Dose Admin Ceftriaxone Sodium 2 gm 11/01/18 18:07 11/01/18 18:23 Rocephin IVPUSH 11/01/18 18:08 2 gm STAT ONE Administration Ciprofloxacin 1 packet 11/01/18 18:15 Take Home: Ciprofloxacin 500 Mg, 2 Tab Pack PO 11/01/18 18:16 ONETIME ONE Sodium Chloride 1,000 mls @ 1,000 mls/hr 11/01/18 16:58 11/01/18 17:06 Normal Saline IV 11/01/18 17:57 1,000 mls/hr .BOLUS ONE Administration Ondansetron HCl 4 mg 11/01/18 16:58 11/01/18 17:06 Zofran IVPUSH 11/01/18 16:59 4 mg ONETIME ONE Administration Ondansetron HCl 1 packet 11/01/18 18:17 11/01/18 18:34 Take Home: Ondansetron Odt 4 Mg, 2 Tab Pack PO 11/01/18 18:18 1 packet ONETIME ONE Administration Sodium Chloride 10 ml 11/01/18 16:51 Saline Flush FLUSH ASDIRECTED PRN Keep Vein Open Departure - Departure Time of Disposition: 18:40 Disposition: Home, Self-Care 01 Condition: Good Clinical Impression: UTI (urinary tract infection) - Discharge Information Instructions: Ondansetron oral dissolving tablet, Urinary Tract Infection, Adult, Ciprofloxacin tablets, Probiotics Referrals: Moon Kruse DO [Primary Care Provider] - Forms: ED Department Discharge Additional Instructions: Cipro 500mg twice daily for 7 days Zofran 4mg ODT 1 every 6 hours for nausea Follow-up with urology or PCP in 10-14 days, sooner if not gradually improving. Return to ER with increased weakness, vomiting, chest pain, or shortness of breath. - My Orders Last 24 Hours: My Active Orders 11/01/18 16:50 EKG Documentation Completion [RC] STAT 11/01/18 16:52 Blood Culture x2 Reflex Set [OM.PC] Stat Peripheral IV Insertion Adult [OM.PC] Routine 11/01/18 17:20 CULTURE BLOOD [BC] Stat 11/01/18 17:29 CULTURE BLOOD [BC] Stat 11/01/18 17:52 CULTURE URINE [RM] Stat - Assessment/Plan Last 24 Hours: My Active Orders 11/01/18 16:50 EKG Documentation Completion [RC] STAT 11/01/18 16:52 Blood Culture x2 Reflex Set [OM.PC] Stat Peripheral IV Insertion Adult [OM.PC] Routine 11/01/18 17:20 CULTURE BLOOD [BC] Stat 11/01/18 17:29 CULTURE BLOOD [BC] Stat 11/01/18 17:52 CULTURE URINE [RM] Stat Plan: Cipro 500mg twice daily for 7 days Zofran 4mg ODT 1 every 6 hours for nausea Follow-up with urology or PCP in 10-14 days, sooner if not gradually improving. Return to ER with increased weakness, vomiting, chest pain, or shortness of breath.
[2018-11-01 18:02] LABS: ANION GAP 15.2 mmol/L (10-20); CHLORIDE,CL 101 mmol/L (98-107); SODIUM,NA 139 mmol/L (136-145)
[2018-11-01] MEDS ORDERED: cefTRIAXone 2 GM Vial IVPUSH ONE (18:07)
[2018-11-01] MEDS ORDERED: Take Home: Ciprofloxacin 500 MG Tab, 2 Tab Pack PO ONE (18:15)
[2018-11-01] MEDS ORDERED: Take Home: Ondansetron 4 MG Tab.DIS, 2 Tab Pack PO ONE (18:17)
== END 2018-11-01 18:40 | disposition home or self-care (01) ==
LOC: VM.ED 16:43
DX: N39.0 Urinary tract infection, site not specified (principal); R11.2 Nausea with vomiting, unspecified; R07.89 Other chest pain; M25.512 Pain in left shoulder; I10 Essential (primary) hypertension; K21.9 Gastro-esophageal reflux disease without esophagitis; M19.90 Unspecified osteoarthritis, unspecified site; E03.9 Hypothyroidism, unspecified; F32.9 Major depressive disorder, single episode, unspecified; Z88.2 Allergy status to sulfonamides; Z88.1 Allergy status to other antibiotic agents; Z88.5 Allergy status to narcotic agent; Z88.8 Allergy status to other drugs, medicaments and biological substances; Z79.899 Other long term (current) drug therapy; Z90.49 Acquired absence of other specified parts of digestive tract; Z90.710 Acquired absence of both cervix and uterus; Z98.890 Other specified postprocedural states
CPT/HCPCS: 36415; 71045; 80053; 81001; 83605; 83735; 84100; 84443; 84484; 85025; 85610; 86140; 87040; 87086; 87088; 87186; 93005; 93010; 96361; 96374; 96375; 99284; A9270; J0696; J2405; J7030

== ENCOUNTER 2020-06-20 07:50 | Emergency (ER) | payer MEDICARE, BC ==
--- NOTE | 2020-06-20 09:11 | CR ---
[id number] RAD/RAD Shoulder Right 2V Min Exam: RAD Shoulder Right 2V Min Indication:ACUTE RIGHT SHOULDER PAIN. Comparison: No prior imaging for comparison. Discussion/Impression: Acromioclavicular osteoarthritis. Joint space narrowing. Glenohumeral articulation remains in normal alignment. Joint spaces well-preserved. No fracture or dislocation. Darryl Moss MD 06/20/20 0911 Thank you for allowing us to participate in the care of your patient.
--- NOTE | 2020-06-20 09:31 | EDM.PDOC ---
ED HPI GENERAL MEDICAL PROBLEM - General Chief Complaint: Upper Extremity Injury/Pain Time Seen by Provider: 06/20/20 08:00 Source of Information: Reports: Patient, RN History Limitations: Reports: No Limitations - History of Present Illness INITIAL COMMENTS - FREE TEXT/NARRATIVE: Pt. presents to ER with complaints of R shoulder pain. Pt. states that she thinks she injured it scrubbing floors on Friday. She states that she is unable to sleep. Pt. states that she has been taking ibuprofen intermittently and states that it doesn't help. She is also on tramadol, but states that this hasn't been helping much. She states that she only takes this once per day. Pt. denies any significant trauma. No falls on accidents. Denies any numbness/tingling in extremity. Denies any previous injury to the shoulder in the past. Onset Date: 06/17/20 Location: Reports: Upper Extremity, Right Severity: Severe Right Shoulder Pain Score (Numeric/FACES): 10 - Related Data Allergies Allergy/AdvReac Type Severity Reaction Status Date / Time Sulfa (Sulfonamide Allergy Unknown Other Verified 11/01/18 17:15 Antibiotics) azithromycin [From Zithromax] Allergy Other Verified 11/01/18 17:15 benzonatate Allergy Abdominal Verified 06/20/20 08:13 Pain clarithromycin [From Biaxin] Allergy Other Verified 11/01/18 17:15 codeine Allergy Shortness Verified 11/01/18 17:15 of Breath hydroxyzine Allergy Other Verified 11/01/18 17:15 meperidine [From Demerol] Allergy Shortness Verified 11/01/18 17:15 of Breath metoclopramide [From Reglan] Allergy Other Verified 11/01/18 17:15 nitrofurantoin Allergy Abdominal Verified 06/20/20 08:13 Pain Phenothiazines Allergy Other Verified 11/01/18 17:15 promethazine Allergy Other Verified 11/01/18 17:15 zafirlukast [From Accolate] Allergy Rash Verified 06/20/20 08:13 acetaminophen [From Tylenol] AdvReac Anxiety Verified 11/01/18 17:15 propoxyphene [From Darvon] AdvReac Stomach Verified 11/01/18 17:15 Upset Home Meds: Home Meds Estrogens, Conjugated [Premarin] 0.3 mg PO MOWEFR@0800 11/03/17 [History] Gabapentin [Neurontin] 600 mg PO DAILY 11/03/17 [History] Levothyroxine [Synthroid] 100 mcg PO ACBREAKFAST 11/03/17 [History] Propranolol HCl [Inderal LA] 80 mg PO DAILY 11/03/17 [History] SUMAtriptan [Imitrex] 100 mg PO ASDIRECTED PRN 11/03/17 [History] ClonazePAM [KlonoPIN] 0.5 mg PO DAILY PRN 02/26/18 [History] Omeprazole Magnesium [Prilosec Otc] 20 mg PO DAILY 02/26/18 [History] FLUoxetine [PROzac] 20 mg PO DAILY 09/23/18 [History] traMADol [Ultram] 50 mg PO Q8H PRN 09/23/18 [History] Albuterol Sulfate [Albuterol Sulfate Hfa] 1 - 2 puff IH Q4H PRN 06/20/20 [History] Budesonide [Pulmicort] 0.5 mg IH BID 06/20/20 [History] Past Medical History HEENT History: Reports: Other (See Below) Other HEENT History: meniere's disease Cardiovascular History: Reports: Hypertension Other Cardiovascular History: raynaud's syndrome Gastrointestinal History: Reports: GERD Genitourinary History: Reports: UTI, Recurrent Other Genitourinary History: microscopic hematuria. stress incontinence. voiding dysfunction Musculoskeletal History: Reports: Osteoarthritis Other Musculoskeletal History: spinal stenosis. radial styloid tenosynovitis of both hands. osteopenia. ganglion cyst. cervical spinal stenosis. trigger finger. back surgery. chronic si joint pain Neurological History: Reports: Migraines Other Neuro History: fibromyalgia Psychiatric History: Reports: Depression Other Psychiatric History: pain contract Endocrine/Metabolic History: Reports: Hypothyroidism, Osteopenia Other Endocrine/Metabolic History: lupus Hematologic History: Reports: Anemia Dermatologic History: Reports: Other (See Below) Other Dermatologic History: pruritic disorder - Past Surgical History HEENT Surgical History: Reports: Polypectomy, Tonsillectomy GI Surgical History: Reports: Cholecystectomy, Colonoscopy, EGD Female Surgical History: Reports: Hysterectomy Endocrine Surgical History: Reports: None Musculoskeletal Surgical History: Reports: Ganglion Cyst, Other (See Below) Other Musculoskeletal Surgeries/Procedures:: temporomandibular joint surgery. lumbar laminectomy. cyst removal right wrist Social & Family History - Tobacco Use Tobacco Use Status *Q: Never Tobacco User - Caffeine Use Caffeine Use: Reports: Coffee Review of Systems - Review of Systems Review Of Systems: Comprehensive ROS is negative, except as noted in HPI. ED EXAM, GENERAL - Physical Exam Exam: See Below Exam Limited By: No Limitations General Appearance: Alert, WD/WN, No Apparent Distress Extremities: Arm Pain (severe pain with minimal palpation of the R shoulder. She really does not tolerate much of an exam. Any movement of the extremity of the shoulder joint causes her severe pain. No obvious deformity. CMS intact. No redness/warmth.), Limited Range of Motion Course - Vital Signs Last Recorded V/S: Last Vital Signs Temp 36.3 C 06/20/20 07:55 Pulse 73 06/20/20 07:55 Resp 18 06/20/20 07:55 BP 140/59 L 06/20/20 07:55 Pulse Ox 97 06/20/20 07:55 - Radiology Interpretation Free Text/Narrative:: 2 view shoulder obtained. No fracture/dislocation. +Joint space narrowing. AC osteoarthritis. Glenohumeral articulation in normal alignment. Departure - Departure Time of Disposition: 09:15 Disposition: Home, Self-Care 01 Clinical Impression: Rotator cuff impingement syndrome of right shoulder - Discharge Information Instructions: Rotator Cuff Tendinitis, Naproxen and naproxen sodium oral immediate-release tablets Referrals: Moon Kruse DO [Primary Care Provider] - Forms: ED Department Discharge Additional Instructions: Start physical therapy tomorrow at 11:15AM here at the hospital. Increase tramadol to 1 tab every 4-6 hours as needed for pain. Naproxen 500mg 1 tab twice daily. Recheck in clinic in 7-10 days. Sepsis Event Note (ED) - Evaluation Sepsis Screening Result: No Definite Risk - Focused Exam Vital Signs: Vital Signs Temp Pulse Resp BP Pulse Ox 06/20/20 07:55 36.3 C 73 18 140/59 L 97 - Problem List Review Problem List Initiated/Reviewed/Updated: Yes - Assessment/Plan Plan: Start physical therapy tomorrow at 11:15AM here at the hospital. Increase tramadol to 1 tab every 4-6 hours as needed for pain. Naproxen 500mg 1 tab twice daily. Recheck in clinic in 7-10 days.
== END 2020-06-20 09:30 | disposition home or self-care (01) ==
LOC: VM.ED 07:50
DX: M75.41 Impingement syndrome of right shoulder (principal); I10 Essential (primary) hypertension; K21.9 Gastro-esophageal reflux disease without esophagitis; E03.9 Hypothyroidism, unspecified; Z88.8 Allergy status to other drugs, medicaments and biological substances; Z88.1 Allergy status to other antibiotic agents; Z88.5 Allergy status to narcotic agent; Z88.2 Allergy status to sulfonamides; Z79.899 Other long term (current) drug therapy
CPT/HCPCS: 73030-RT; 99283

== ENCOUNTER 2020-12-30 07:40 | Emergency (ER) | payer MEDICARE, BC ==
[2020-12-30 08:23] VITALS: BP 120/47; PULSE 88
[2020-12-30 08:49] LABS: CHLORIDE,CL 102 mmol/L (98-107); SODIUM,NA 140 mmol/L (136-145)
[2020-12-30 08:50] LABS: ANION GAP 14.8 mmol/L (5-15)
--- NOTE | 2020-12-30 09:10 | PCM.EKG ---
#1 Interpretation EKG Date: 12/30/20 Time: 08:25 Rhythm: NSR Rate (Beats/Min): 87 [employer]: Normal P-Wave: Present QRS: Normal ST-T: Normal QT: Normal Comparison: NA - No Prior EKG
--- NOTE | 2020-12-30 09:10 | EDM.PDOC ---
ED HPI GENERAL MEDICAL PROBLEM - General Chief Complaint: General Stated Complaint: all over pain Time Seen by Provider: 12/30/20 07:55 Source of Information: Reports: Patient History Limitations: Reports: No Limitations - History of Present Illness INITIAL COMMENTS - FREE TEXT/NARRATIVE: Patient comes emergency department today from home by ambulance with complaints of generalized myalgias. This patient since August has been doctoring in the primary care clinic for myalgia type pain. She does have a history of spinal stenosis Mnire's disease hypothyroidism GERD osteopenia. She just finished a course of steroids 2 days ago for her myalgias. She has been on almost chronic tapering steroids since August. For her generalized joint arm leg pain and dysfunction. She is to see a desilverizer on the seventh of this month which is why she has discontinued her steroids. Since she has discontinued her steroid she has severe flare of her pain throughout her joints arms fingers hands body back. She also complains of some generalized weakness as well as lightheadedness upon standing. No vertigo. No fever but some subjective chills. No cough or congestion. No pain in her chest palpitations or syncope. No abdominal pain. She denies nausea or vomiting. No flank pain. She has related over the past about a month she has had urinary frequency and dysuria that she has been treating with oral hydration and Azo [id number]. She denies any black tarry stools or diarrhea. She was given morphine prior to arrival with improvement of her generalized pain. Bilateral Pain Score (Numeric/FACES): 8 - Related Data Allergies Allergy/AdvReac Type Severity Reaction Status Date / Time Sulfa (Sulfonamide Allergy Unknown Other Verified 11/01/18 17:15 Antibiotics) azithromycin [From Zithromax] Allergy Other Verified 11/01/18 17:15 benzonatate Allergy Abdominal Verified 06/20/20 08:13 Pain clarithromycin [From Biaxin] Allergy Other Verified 11/01/18 17:15 codeine Allergy Shortness Verified 11/01/18 17:15 of Breath hydroxyzine Allergy Other Verified 11/01/18 17:15 meperidine [From Demerol] Allergy Shortness Verified 11/01/18 17:15 of Breath metoclopramide [From Reglan] Allergy Other Verified 11/01/18 17:15 nitrofurantoin Allergy Abdominal Verified 06/20/20 08:13 Pain Phenothiazines Allergy Other Verified 11/01/18 17:15 promethazine Allergy Other Verified 11/01/18 17:15 zafirlukast [From Accolate] Allergy Rash Verified 06/20/20 08:13 acetaminophen [From Tylenol] AdvReac Anxiety Verified 11/01/18 17:15 propoxyphene [From Darvon] AdvReac Stomach Verified 11/01/18 17:15 Upset Home Meds: Home Meds Estrogens, Conjugated [Premarin] 0.3 mg PO MOWEFR@0800 11/03/17 [History] Gabapentin [Neurontin] 600 mg PO DAILY 11/03/17 [History] Levothyroxine [Synthroid] 100 mcg PO ACBREAKFAST 11/03/17 [History] Propranolol HCl [Inderal LA] 80 mg PO DAILY 11/03/17 [History] SUMAtriptan [Imitrex] 100 mg PO ASDIRECTED PRN 11/03/17 [History] ClonazePAM [KlonoPIN] 0.5 mg PO DAILY PRN 02/26/18 [History] Omeprazole Magnesium [Prilosec Otc] 20 mg PO DAILY 02/26/18 [History] FLUoxetine [PROzac] 20 mg PO DAILY 09/23/18 [History] traMADol [Ultram] 50 mg PO Q8H PRN 09/23/18 [History] Albuterol Sulfate [Albuterol Sulfate Hfa] 1 - 2 puff IH Q4H PRN 06/20/20 [History] Budesonide [Pulmicort] 0.5 mg IH BID 06/20/20 [History] oxyCODONE 2.5 mg PO ASDIRECTED #12 tab 12/30/20 [Rx] Past Medical History HEENT History: Reports: Other (See Below) Other HEENT History: meniere's disease Cardiovascular History: Reports: Hypertension Other Cardiovascular History: raynaud's syndrome Gastrointestinal History: Reports: GERD Genitourinary History: Reports: UTI, Recurrent Other Genitourinary History: microscopic hematuria. stress incontinence. voiding dysfunction Musculoskeletal History: Reports: Osteoarthritis Other Musculoskeletal History: spinal stenosis. radial styloid tenosynovitis of both hands. osteopenia. ganglion cyst. cervical spinal stenosis. trigger finger. back surgery. chronic si joint pain Neurological History: Reports: Migraines Other Neuro History: fibromyalgia Psychiatric History: Reports: Depression Other Psychiatric History: pain contract Endocrine/Metabolic History: Reports: Hypothyroidism, Osteopenia Other Endocrine/Metabolic History: lupus Hematologic History: Reports: Anemia Dermatologic History: Reports: Other (See Below) Other Dermatologic History: pruritic disorder - Past Surgical History HEENT Surgical History: Reports: Polypectomy, Tonsillectomy Cardiovascular Surgical History: Reports: None GI Surgical History: Reports: Cholecystectomy, Colonoscopy, EGD Female Surgical History: Reports: Hysterectomy Endocrine Surgical History: Reports: None Neurological Surgical History: Reports: None Musculoskeletal Surgical History: Reports: Ganglion Cyst, Other (See Below) Other Musculoskeletal Surgeries/Procedures:: temporomandibular joint surgery. lumbar laminectomy. cyst removal right wrist Social & Family History - Tobacco Use Tobacco Use Status *Q: Never Tobacco User Second Hand Smoke Exposure: No - Caffeine Use Caffeine Use: Reports: Coffee - Recreational Drug Use Recreational Drug Use: No ED ROS GENERAL - Review of Systems Review Of Systems: Comprehensive ROS is negative, except as noted in HPI. ED EXAM, GENERAL - Physical Exam Exam: See Below Exam Limited By: No Limitations General Appearance: Alert, WD/WN, No Apparent Distress Eye Exam: Bilateral Eye: EOMI, PERRL Ears: Normal External Exam, Normal TMs Nose: Normal Inspection Throat/Mouth: Normal Inspection Head: Atraumatic, Normocephalic Neck: Normal Inspection Respiratory/Chest: No Respiratory Distress, Lungs Clear, Normal Breath Sounds, No Accessory Muscle Use, Chest Non-Tender Cardiovascular: Normal Peripheral Pulses, Regular Rate, Rhythm GI/Abdominal: Normal Bowel Sounds Back Exam: Normal Inspection Extremities: No: Normal Inspection (mild swelling to the joints of the hands knees. Quite sensitive to any palpation and movement. ) Neurological: Alert, Oriented, CN II-XII Intact, Normal Cognition, No Motor/Sensory Deficits Psychiatric: Normal Affect Skin Exam: Warm, Dry, Intact, Normal Color Lymphatic: No Adenopathy Course - Vital Signs Last Recorded V/S: Last Vital Signs Temp 98.8 F 12/30/20 08:19 Pulse 88 12/30/20 08:19 Resp 18 12/30/20 08:19 BP 120/47 L 12/30/20 08:19 Pulse Ox 94 L 12/30/20 08:19 - Orders/Labs/Meds Orders: Active Orders 24 hr Category Date Time Status [place] W/RFX TO ALL IF POSITIVE [REF] Stat Lab 12/30/20 09:04 Received LYME DISEASE AB TOTAL IG EIA [REF] Stat Lab 12/30/20 09:04 Received RHEUMATOID FACTOR [REF] Stat Lab 12/30/20 09:04 Received Labs: Laboratory Tests 12/30/20 12/30/20 12/30/20 Range/Units 08:00 08:00 08:00 WBC 11.8 H (4.0-10.0) x10^3/uL RBC 4.46 (4.00-5.50) x10^6/uL Hgb 12.9 (12.0-16.0) g/dL Hct 39.3 (33.0-47.0) % MCV 88.1 (78.0-93.0) fL MCH 28.9 (26.0-32.0) pg MCHC 32.8 (32.0-36.0) g/dL RDW Coeff of Rick 13.5 (10.0-15.0) % Plt Count 248 (130-400) x10^3/uL Immature Gran % (Auto) 0.50 H (0.00-0.43) % Neut % (Auto) 81.2 H (50.0-80.0) % Lymph % (Auto) 8.3 L (25.0-50.0) % [place] % (Auto) 6.1 (2.0-11.0) % Eos % (Auto) 3.6 (0.0-4.0) % Baso % (Auto) 0.3 (0.2-1.2) % Neut # (Auto) 9.6 H (1.8-7.7) x10^3/uL Lymph # (Auto) 1.0 (1.0-4.8) x10^3/uL [place] # (Auto) 0.7 (0.0-0.8) x10^3/uL Eos # (Auto) 0.4 (0.0-0.5) x10^3/uL Baso # (Auto) 0.0 (0.0-0.2) x10^3/uL Immature Gran # (Auto) 0.06 (0.00-0.07) x10^3/uL ESR (0-20) mm/hr Sodium 140 (136-145) mmol/L Potassium 3.8 (3.5-5.1) mmol/L Chloride 102 (98-107) mmol/L Carbon Dioxide 27 (21-32) mmol/L Anion Gap 14.8 (5-15) mmol/L BUN 12 (7-18) mg/dL Creatinine 0.8 (0.55-1.02) mg/dL Est Cr Clr Drug Dosing 47.32 mL/min Estimated GFR (MDRD) > 60 Glucose 163 H (70-99) mg/dL Lactic Acid 1.9 (0.4-2.0) mmol/L Calcium 8.8 (8.5-10.1) mg/dL Corrected Calcium 9.6 (8.5-10.1) mg/dL Magnesium 1.9 (1.8-2.4) mg/dL Total Bilirubin 0.9 (0.2-1.0) mg/dL AST 13 L (15-37) U/L ALT 24 (14-59) U/L Alkaline Phosphatase 66 (46-116) U/L Creatine Kinase (26-192) U/L Troponin I High Sens 11 (<=51) ng/L C-Reactive Protein 7.0 H (<=0.9) mg/dL Total Protein 6.4 (6.4-8.2) g/dL Albumin 3.0 L (3.4-5.0) g/dL Globulin 3.4 Albumin/Globulin Ratio 0.88 Procalcitonin (0.1-0.50) ng/mL Urine Color (YELLOW) Urine Appearance (CLEAR) Urine pH (5.0-8.0) Ur Specific [place] Urine Protein (NEGATIVE) mg/dL Urine Glucose (UA) (NEGATIVE) mg/dL Urine Ketones (NEGATIVE) mg/dL Urine Occult Blood (NEGATIVE) Urine Nitrite (NEGATIVE) Urine Bilirubin (NEGATIVE) Urine Urobilinogen (0.2) EU/dL Ur Leukocyte Esterase (NEGATIVE) 12/30/20 12/30/20 12/30/20 Range/Units 08:00 08:00 08:00 WBC (4.0-10.0) x10^3/uL RBC (4.00-5.50) x10^6/uL Hgb (12.0-16.0) g/dL Hct (33.0-47.0) % MCV (78.0-93.0) fL MCH (26.0-32.0) pg MCHC (32.0-36.0) g/dL RDW Coeff of Rick (10.0-15.0) % Plt Count (130-400) x10^3/uL Immature Gran % (Auto) (0.00-0.43) % Neut % (Auto) (50.0-80.0) % Lymph % (Auto) (25.0-50.0) % [place] % (Auto) (2.0-11.0) % Eos % (Auto) (0.0-4.0) % Baso % (Auto) (0.2-1.2) % Neut # (Auto) (1.8-7.7) x10^3/uL Lymph # (Auto) (1.0-4.8) x10^3/uL [place] # (Auto) (0.0-0.8) x10^3/uL Eos # (Auto) (0.0-0.5) x10^3/uL Baso # (Auto) (0.0-0.2) x10^3/uL Immature Gran # (Auto) (0.00-0.07) x10^3/uL ESR 25 H (0-20) mm/hr Sodium (136-145) mmol/L Potassium (3.5-5.1) mmol/L Chloride (98-107) mmol/L Carbon Dioxide (21-32) mmol/L Anion Gap (5-15) mmol/L BUN (7-18) mg/dL Creatinine (0.55-1.02) mg/dL Est Cr Clr Drug Dosing mL/min Estimated GFR (MDRD) Glucose (70-99) mg/dL Lactic Acid (0.4-2.0) mmol/L Calcium (8.5-10.1) mg/dL Corrected Calcium (8.5-10.1) mg/dL Magnesium (1.8-2.4) mg/dL Total Bilirubin (0.2-1.0) mg/dL AST (15-37) U/L ALT (14-59) U/L Alkaline Phosphatase (46-116) U/L Creatine Kinase 18 L (26-192) U/L Troponin I High Sens (<=51) ng/L C-Reactive Protein (<=0.9) mg/dL Total Protein (6.4-8.2) g/dL Albumin (3.4-5.0) g/dL Globulin Albumin/Globulin Ratio Procalcitonin 0.06 L (0.1-0.50) ng/mL Urine Color (YELLOW) Urine Appearance (CLEAR) Urine pH (5.0-8.0) Ur Specific [place] Urine Protein (NEGATIVE) mg/dL Urine Glucose (UA) (NEGATIVE) mg/dL Urine Ketones (NEGATIVE) mg/dL Urine Occult Blood (NEGATIVE) Urine Nitrite (NEGATIVE) Urine Bilirubin (NEGATIVE) Urine Urobilinogen (0.2) EU/dL Ur Leukocyte Esterase (NEGATIVE) 12/30/20 Range/Units 09:45 WBC (4.0-10.0) x10^3/uL RBC (4.00-5.50) x10^6/uL Hgb (12.0-16.0) g/dL Hct (33.0-47.0) % MCV (78.0-93.0) fL MCH (26.0-32.0) pg MCHC (32.0-36.0) g/dL RDW Coeff of Rick (10.0-15.0) % Plt Count (130-400) x10^3/uL Immature Gran % (Auto) (0.00-0.43) % Neut % (Auto) (50.0-80.0) % Lymph % (Auto) (25.0-50.0) % [place] % (Auto) (2.0-11.0) % Eos % (Auto) (0.0-4.0) % Baso % (Auto) (0.2-1.2) % Neut # (Auto) (1.8-7.7) x10^3/uL Lymph # (Auto) (1.0-4.8) x10^3/uL [place] # (Auto) (0.0-0.8) x10^3/uL Eos # (Auto) (0.0-0.5) x10^3/uL Baso # (Auto) (0.0-0.2) x10^3/uL Immature Gran # (Auto) (0.00-0.07) x10^3/uL ESR (0-20) mm/hr Sodium (136-145) mmol/L Potassium (3.5-5.1) mmol/L Chloride (98-107) mmol/L Carbon Dioxide (21-32) mmol/L Anion Gap (5-15) mmol/L BUN (7-18) mg/dL Creatinine (0.55-1.02) mg/dL Est Cr Clr Drug Dosing mL/min Estimated GFR (MDRD) Glucose (70-99) mg/dL Lactic Acid (0.4-2.0) mmol/L Calcium (8.5-10.1) mg/dL Corrected Calcium (8.5-10.1) mg/dL Magnesium (1.8-2.4) mg/dL Total Bilirubin (0.2-1.0) mg/dL AST (15-37) U/L ALT (14-59) U/L Alkaline Phosphatase (46-116) U/L Creatine Kinase (26-192) U/L Troponin I High Sens (<=51) ng/L C-Reactive Protein (<=0.9) mg/dL Total Protein (6.4-8.2) g/dL Albumin (3.4-5.0) g/dL Globulin Albumin/Globulin Ratio Procalcitonin (0.1-0.50) ng/mL Urine Color Yellow (YELLOW) Urine Appearance Clear (CLEAR) Urine pH 7.0 (5.0-8.0) Ur Specific [place] 1.020 Urine Protein Negative (NEGATIVE) mg/dL Urine Glucose (UA) Negative (NEGATIVE) mg/dL Urine Ketones Trace H (NEGATIVE) mg/dL Urine Occult Blood Negative (NEGATIVE) Urine Nitrite Negative (NEGATIVE) Urine Bilirubin Negative (NEGATIVE) Urine Urobilinogen 0.2 (0.2) EU/dL Ur Leukocyte Esterase Negative (NEGATIVE) Meds: Medications Discontinued Medications Generic Name Dose Route Start Last Admin Trade Name Freq PRN Reason Stop Dose Admin Hydromorphone HCl 0.5 mg 12/30/20 09:09 12/30/20 10:28 Hydromorphone 0.5 Mg/0.5 Ml Syringe IV 12/30/20 09:10 0.5 mg ONETIME ONE Administration - Re-Assessments/Exams Free Text/Narrative Re-Assessment/Exam: 12/30/20 This patient's presentation is 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 IV was established. Patient was given Dilaudid with improvement of pain. EKG unremarkable. Urinalysis is negative. She has a mild elevation of her CRP and her ESR although she has been on steroids pretty consistently for the last couple of months. Her CPK is normal at 18. Her troponin is negative at 11. Her procalcitonin is negative at 0.06. Pending studies to include rheumatoid factor [place] and anti-CCP as this has not been completed in the primary care setting and she has a rheumatology follow-up coming shortly and this may assist the desilverizer in differentiation and diagnosis of her polymyalgia that she has had for months. Her CRP and ESR are not therapeuticly diagnostic as she is currently just discontinued prednisone. The patient does feel quite a bit better. Her acute work-up is unremarkable and negative. She does have a plethora of allergies. I typically would use hydrocodone although she relates Tylenol she has a severe side effect to. I do have some caution of using oxycodone as she is somewhat narcotic maury. She is already elderly and deconditioned due to her polymyalgia I warned her and gave her multiple educational aspects of the use of oxycodone and her age and to use this very sparingly and in small amounts. We will start her on oxycodone 2.5-5 every 4-6 hours. I would like her to contact her rheumatology clinic on Friday to get the results of some of the laboratory work-up for her evaluation with rheumatology next week. Discharge directions as below are explained to the patient she was comfortable with this plan and her questions were answered. Departure - Departure Time of Disposition: 10:37 Disposition: Home, Self-Care 01 Clinical Impression: Polymyalgia - Discharge Information *PRESCRIPTION DRUG MONITORING PROGRAM REVIEWED*: Yes *COPY OF PRESCRIPTION DRUG MONITORING REPORT IN PATIENT BRYANT: No Prescriptions: oxyCODONE 2.5 mg PO ASDIRECTED #12 tab Forms: ED Department Discharge Additional Instructions: Continue previous medications. Contact the Rheumatology Clinic at [facility] on friday and have them get the results of the lab tests done today. These are not all inclusive but will give a start for them. As you are allergic to everything. We will start Oxycodone 2.5-1 tab every 4-6 hrs with food as needed for pain. Caution sedation or falls. Really really be cautious with this until you know how you will respond. Also risk of constipation so I would use some miralax over the counter to prevent constipation. A little prevention goes a long ways when it comes to constipation. May take this medication with your tramadol although be cautious . Return to the ED if new or worsening symptoms. Follow up with Rheumatology as planned and PCP as needed. Sepsis Event Note (ED) - Evaluation Sepsis Screening Result: No Definite Risk - Focused Exam Vital Signs: Vital Signs Temp Pulse Resp BP Pulse Ox 12/30/20 08:19 98.8 F 88 18 120/47 L 94 L - My Orders Last 24 Hours: My Active Orders 12/30/20 09:04 [place] W/RFX TO ALL IF POSITIVE [REF] Stat LYME DISEASE AB TOTAL IG EIA [REF] Stat RHEUMATOID FACTOR [REF] Stat - Assessment/Plan Last 24 Hours: My Active Orders 12/30/20 09:04 [place] W/RFX TO ALL IF POSITIVE [REF] Stat LYME DISEASE AB TOTAL IG EIA [REF] Stat RHEUMATOID FACTOR [REF] Stat
[2020-12-30] MEDS: HYDROmorphone 0.5 MG/0.5 ML Syringe IV ONE (10:28)
== END 2020-12-30 10:46 | disposition home or self-care (01) ==
LOC: VM.ED 07:40
DX: M79.10 Myalgia, unspecified site (principal); I10 Essential (primary) hypertension; E03.9 Hypothyroidism, unspecified; Z79.899 Other long term (current) drug therapy; Z88.1 Allergy status to other antibiotic agents; Z88.5 Allergy status to narcotic agent; Z88.8 Allergy status to other drugs, medicaments and biological substances; Z88.2 Allergy status to sulfonamides
CPT/HCPCS: 36415; 80053; 81003; 82550; 83605; 83735; 84145; 84484; 85025; 85652; 86038; 86140; 86225; 86235; 86431; 86618; 93005; 93010; 96374; 99284; 99285-25; J1170

== ENCOUNTER 2024-05-17 07:14 | Emergency (ER) | payer BC, MEDICARE ==
[2024-05-17] MEDS ORDERED: Sodium Chloride 0.9% 10 ML Syringe FLUSH PRN (07:25)
[2024-05-17] MEDS: Ondansetron 4 MG/2 ML SDV IVPUSH ONE (07:30)
[2024-05-17 07:37] LABS: BASOPHILS PERCENT AUTO 0.2 % (0.2-1.2); EOSINOPHILS ABSOLUTE AUTO 0.2 x10^3/uL (0.0-0.5); EOSINOPHILS PERCENT AUTO 1.4 % (0.0-4.0); HEMATOCRIT 35.8 % (33.0-47.0); HEMOGLOBIN 11.5 g/dL (12.0-16.0); IMMATURE GRAN ABSOLUTE AUTO 0.02 x10^3/uL (0.00-0.07); LYMPHOCYTES ABSOLUTE AUTO 1.3 x10^3/uL (1.0-4.8); LYMPHOCYTES PERCENT AUTO 11.4 % (25.0-50.0); MEAN CORPUSCULAR HEMOGLOBIN 29.9 pg (26.0-32.0); MEAN CORPUSCULAR HGB CONC 32.1 g/dL (32.0-36.0); MONOCYTES ABSOLUTE AUTO 1.3 x10^3/uL (0.0-0.8); MONOCYTES PERCENT AUTO 11.8 % (2.0-11.0); NEUTROPHILS ABSOLUTE AUTO 8.3 x10^3/uL (1.8-7.7); PLATELET COUNT,PLT 238 x10^3/uL (130-400); RED BLOOD CELL COUNT 3.85 x10^6/uL (4.00-5.50); WHITE BLOOD CELL COUNT,WBC 11.1 x10^3/uL (4.0-10.0)
[2024-05-17 07:57] LABS: A/G RATIO 0.88; ALANINE AMINOTRANSFERASE,ALT 27 U/L (14-59); ALBUMIN 2.9 g/dL (3.4-5.0); ALKALINE PHOSPHATASE 65 U/L (46-116); ANION GAP 12.8 mmol/L (5-15); ASPARTATE AMNIOTRANSFERASE,AST 15 U/L (15-37); BILIRUBIN TOTAL 0.8 mg/dL (0.2-1.0); BLOOD UREA NITROGEN,BUN 13 mg/dL (7-18); C-REACTIVE PROTEIN 5.53 mg/dL (<=0.50); CALCIUM 8.9 mg/dL (8.5-10.1); CARBON DIOXIDE,CO2 28 mmol/L (21-32); CHLORIDE,CL 102 mmol/L (98-107); CREATININE 0.8 mg/dL (0.55-1.02); ESTIMATED GFR 75 mL/min (>=60); GLUCOSE RANDOM 114 mg/dL (70-99); POTASSIUM,K 3.8 mmol/L (3.5-5.1); PROTEIN TOTAL,TP 6.2 g/dL (6.4-8.2); SODIUM,NA 139 mmol/L (136-145)
[2024-05-17] MEDS: Albuterol HFA 18 Gm Inhaler INH PRN (08:20)
[2024-05-17] MEDS: Aspirin 81 MG Tab.Chew PO ONE (08:25)
[2024-05-17 08:26] LABS: MAGNESIUM 2.1 mg/dL (1.8-2.4)
[2024-05-17 08:27] LABS: SEDIMENTATION RATE AUTO 18 mm/hr (0-20)
[2024-05-17] MEDS: Morphine 4 MG/ML Syringe IVPUSH ONE (10:06)
== END 2024-05-17 10:38 | disposition home or self-care (01) ==
LOC: VM.ED 07:14
DX: M25.552 Pain in left hip (principal); I10 Essential (primary) hypertension; K21.9 Gastro-esophageal reflux disease without esophagitis; E03.9 Hypothyroidism, unspecified; Z88.2 Allergy status to sulfonamides; Z88.1 Allergy status to other antibiotic agents; Z88.8 Allergy status to other drugs, medicaments and biological substances; Z88.5 Allergy status to narcotic agent; Z88.6 Allergy status to analgesic agent; Z79.890 Hormone replacement therapy; Z79.899 Other long term (current) drug therapy
CPT/HCPCS: 36415; 72192; 80053; 83735; 84484; 85025; 85379; 85652; 86140; 93005; 93010; 96374; 96375; 99284; 99285-25; A9270-GY; J2270; J2405